=== PATIENT | male | born 2000 | race American Indian/Alaskan Native ===

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

== ENCOUNTER 2019-03-15 11:21 | Emergency (ER) | payer MEDICAID ==
[2019-03-15 13:30] LABS: Basophils # (Auto) 0.1 K/mm3 (0.0-0.1); Basophils % (Auto) 0.8 % (0.0-1.8); Eosinophils # (Auto) 0.1 K/mm3 (0.0-0.4); Eosinophils % (Auto) 0.7 % (0.0-4.3); Hemoglobin 13.9 gm/dl (11.8-15.2); Lymphocytes # (Auto) 1.9 K/mm3 (1.2-5.4); Lymphocytes % (Auto) 25.5 % (13.4-35.0); Mean Corpuscular HGB Conc 34 % (32-34); Mean Corpuscular Volume 82 fl (84-94); Monocytes # (Auto) 0.5 K/mm3 (0.0-0.8); Monocytes % (Auto) 6.9 % (0.0-7.3); Platelet Count 232 K/mm3 (140-440); Red Blood Count 5.01 M/mm3 (3.65-5.03); Red Cell Distribution Width 14.6 % (13.2-15.2)
[2019-03-15 14:14] LABS: Alanine Aminotransferase 68 units/L (7-56); Albumin 4.4 g/dL (3.9-5); BUN/Creatinine Ratio 14; Blood Urea Nitrogen 11 mg/dL (9-20); Calcium 9.7 mg/dL (8.4-10.2); Hemolysis Index 11
[2019-03-15 14:22] LABS: Bilirubin,Urine NEG (Negative); Blood,Urine NEG (Negative); Color,Urine Yellow (Yellow); Mucus,Urine FEW /HPF; Protein,Urine <15 mg/dL mg/dL (Negative); Urobilinogen,Urine < 2.0 mg/dL (<2.0); WBC,Urine < 1.0 /HPF (0.0-6.0)
[2019-03-15 14:44] LABS: Amphetamine Screen,Urine PRESUMPTIVE NEGATIVE; Benzodiazepines Screen,Urine PRESUMPTIVE NEGATIVE; Cannabinoid Screen,Urine PRESUMPTIVE NEGATIVE; Cocaine Screen,Urine PRESUMPTIVE NEGATIVE; Methadone Screen,Urine PRESUMPTIVE NEGATIVE; Opiate Screen,Urine PRESUMPTIVE NEGATIVE
--- NOTE | 2019-03-15 14:48 | Emergency Department Report ---
ED Psych HPI - General Chief Complaint: Psych Stated Complaint: SI IDEATION Time Seen by Provider: 03/15/19 11:54 Source: EMS Mode of arrival: Ambulatory - History of Present Illness MD Complaint: suicidal ideation -: Gradual Associated Psychiatric Symptoms: suicidal ideation Quality: getting worse Improves With: none Worsens With: none Context: significant life stressor Associated Symptoms: denies other symptoms Treatments Prior to Arrival: placed on mental he, other (Reports patient took 4 of his Seroquel medication pills in attempted overdose. ) - Related Data Home Medications Medication Instructions Recorded Confirmed Last Taken No Known Home Medications [No 10/07/18 03/16/19 Unknown Reported Home Medications] Allergies Allergy/AdvReac Type Severity Reaction Status Date / Time No Known Allergies Allergy Verified 02/26/16 14:16 ED Review of Systems ROS: Stated complaint: SI IDEATION Other details as noted in HPI Other: GENERAL: No weight change, fatigue, fever, chills, or night sweats SKIN: No changes in skin or hair, no itching, no rashes, no jaundice HEAD: No trauma EYES: No blurriness, tearing, itching, acute visual loss, conjunctival discoloration, or scleral icterus EARS: No hearing loss, tinnitus, vertigo, or earache NOSE: No rhinorrhea, stuffiness, sneezing, itching, or epistaxis MOUTH: No bleeding gums, hoarseness, sore throat, or swelling CARDIAC: No new murmur, chest pain, palpitations, dyspnea on exertion, orthopnea, PND, or edema RESPIRATORY: No shortness of breath, wheeze, cough, sputum production, hemoptysis GI: No nausea, vomiting, dysphagia, diarrhea, constipation, hematemesis, melena , hematochezia, or abdominal pain URINARY: No frequency, urgency, polyuria, dysuria, hematuria, or incontinence MUSCULOSKELETAL: No muscle weakness, joint stiffness, decrease in range of motion, redness, swelling NEUROLOGIC: No headache, syncope, loss of sensation, numbness, tingling, tremors, weakness, paralysis, seizures HEMATOLOGIC: No anemia, easy bruising, bleeding, petechiae, or purpura ENDOCRINE: No hot or cold intolerance, sweating, polyuria, polydipsia or, polyphagia no thyroid problems PSYCHIATRIC: SI, depression ED Past Medical Hx - Past Medical History Hx Psychiatric Treatment: Yes (schizoaffective and bipolar disorder) - Social History Smoking Status: Never Smoker Substance Use Type: None - Medications Home Medications: Home Medications Medication Instructions Recorded Confirmed Last Taken Type No Known Home Medications [No 10/07/18 03/16/19 Unknown History Reported Home Medications] ED Physical Exam - General Limitations: No Limitations - Other Other exam information: GENERAL: Patient in no acute distress HEAD: Normocephalic, atraumatic EYES: PERRLA, EOM intact, no scleral icterus, no conjunctival hemorrhage, visual vasquez and acuity wnl NOSE: No tenderness, discharge, sinus tenderness MOUTH: No erythema, bleeding, exudate HEART: Regular rate and rhythm, no murmur, S1-S2 are auscultated, no edema, pulses are symmetric LUNGS: No respiratory distress. Bilateral breath sounds, No tachypnea, No retractions, No wheezing, rales, rhonchi ABDOMEN: Normal bowel sounds, abdomen soft, no tenderness, no rebound, no guarding, no distention, no masses, no CVA tenderness MUSCULOSKELETAL: Normal joint range of motion, no redness, no swelling, no tenderness NEUROLOGIC: GCS 15, Alert and Oriented x3, Cranial nerves intact, normal sensation, normal strength, no cerebellar deficit, NIHSS 0 PSYCHIATRIC: SI. No homicidal, no hallucinations SKIN: Skin is warm and dry, no wounds, no rashes ED Course Vital Signs 03/15/19 03/15/19 03/15/19 12:08 13:00 19:00 Temperature 98 F 98.6 F 98.4 F Pulse Rate 99 H 102 H 98 H Respiratory 18 18 Rate Blood Pressure 156/97 Blood Pressure 152/85 131/89 [Left] O2 Sat by Pulse 100 100 99 Oximetry 03/16/19 03/16/19 03/16/19 02:00 07:00 13:00 Temperature 98.6 F 97.8 F 98.1 F Pulse Rate 86 87 83 Respiratory 16 18 20 Rate Blood Pressure Blood Pressure 140/78 115/65 150/92 [Left] O2 Sat by Pulse 98 99 100 Oximetry 03/16/19 03/16/19 19:20 20:26 Temperature 97.5 F L Pulse Rate 90 Respiratory 18 16 Rate Blood Pressure Blood Pressure 147/85 [Left] O2 Sat by Pulse 98 100 Oximetry ED Medical Decision Making - Lab Data Result diagrams: 03/15/19 13:13 03/15/19 19:27 Laboratory Results - last 24 hr 03/15/19 03/15/19 03/15/19 13:13 13:13 13:13 WBC 7.3 RBC 5.01 Hgb 13.9 Hct 41.0 MCV 82 L MCH 28 MCHC 34 RDW 14.6 Plt Count 232 Lymph % (Auto) 25.5 [place] % (Auto) 6.9 Eos % (Auto) 0.7 Baso % (Auto) 0.8 Lymph # 1.9 [place] # 0.5 Eos # 0.1 Baso # 0.1 Seg Neutrophils % 66.1 Seg Neutrophils # 4.8 Sodium 143 Potassium 4.1 Chloride 102.8 Carbon Dioxide 24 Anion Gap 20 BUN 11 Creatinine 0.8 Estimated GFR > 60 BUN/Creatinine Ratio 14 Glucose 137 H Calcium 9.7 Total Bilirubin 0.30 AST 76 H ALT 68 H Alkaline Phosphatase 149 H Total Creatine Kinase Total Protein 7.7 Albumin 4.4 Albumin/Globulin Ratio 1.3 Urine Color Urine Turbidity Urine pH Ur Specific [place] Urine Protein Urine Glucose (UA) Urine Ketones Urine Blood Urine Nitrite Urine Bilirubin Urine Urobilinogen Ur Leukocyte Esterase Urine WBC (Auto) Urine RBC (Auto) Urine Mucus Salicylates Urine Opiates Screen Urine Methadone Screen Acetaminophen Ur Barbiturates Screen Ur Phencyclidine Scrn Ur Amphetamines Screen U Benzodiazepines Scrn Urine Cocaine Screen U Marijuana (THC) Screen Drugs of Abuse Note Plasma/Serum Alcohol < 0.01 03/15/19 03/15/19 03/15/19 13:13 13:13 13:13 WBC RBC Hgb Hct MCV MCH MCHC RDW Plt Count Lymph % (Auto) [place] % (Auto) Eos % (Auto) Baso % (Auto) Lymph # [place] # Eos # Baso # Seg Neutrophils % Seg Neutrophils # Sodium Potassium Chloride Carbon Dioxide Anion Gap BUN Creatinine Estimated GFR BUN/Creatinine Ratio Glucose Calcium Total Bilirubin AST ALT Alkaline Phosphatase Total Creatine Kinase 1674 H Total Protein Albumin Albumin/Globulin Ratio Urine Color Urine Turbidity Urine pH Ur Specific [place] Urine Protein Urine Glucose (UA) Urine Ketones Urine Blood Urine Nitrite Urine Bilirubin Urine Urobilinogen Ur Leukocyte Esterase Urine WBC (Auto) Urine RBC (Auto) Urine Mucus Salicylates < 0.3 L Urine Opiates Screen Urine Methadone Screen Acetaminophen < 5.0 L Ur Barbiturates Screen Ur Phencyclidine Scrn Ur Amphetamines Screen U Benzodiazepines Scrn Urine Cocaine Screen U Marijuana (THC) Screen Drugs of Abuse Note Plasma/Serum Alcohol 03/15/19 03/15/19 14:02 14:02 WBC RBC Hgb Hct MCV MCH MCHC RDW Plt Count Lymph % (Auto) [place] % (Auto) Eos % (Auto) Baso % (Auto) Lymph # [place] # Eos # Baso # Seg Neutrophils % Seg Neutrophils # Sodium Potassium Chloride Carbon Dioxide Anion Gap BUN Creatinine Estimated GFR BUN/Creatinine Ratio Glucose Calcium Total Bilirubin AST ALT Alkaline Phosphatase Total Creatine Kinase Total Protein Albumin Albumin/Globulin Ratio Urine Color Yellow Urine Turbidity Clear Urine pH 5.0 Ur Specific [place] 1.018 Urine Protein <15 mg/dl Urine Glucose (UA) Neg Urine Ketones Neg Urine Blood Neg Urine Nitrite Neg Urine Bilirubin Neg Urine Urobilinogen < 2.0 Ur Leukocyte Esterase Neg Urine WBC (Auto) < 1.0 Urine RBC (Auto) 1.0 Urine Mucus Few Salicylates Urine Opiates Screen Presumptive negative Urine Methadone Screen Presumptive negative Acetaminophen Ur Barbiturates Screen Presumptive negative Ur Phencyclidine Scrn Presumptive negative Ur Amphetamines Screen Presumptive negative U Benzodiazepines Scrn Presumptive negative Urine Cocaine Screen Presumptive negative U Marijuana (THC) Screen Presumptive negative Drugs of Abuse Note Disclamer Plasma/Serum Alcohol - Medical Decision Making Patient medically clear for transfer. Patient signed out to Dr. Torres who will follow up repeat labs and dispo. Critical care attestation.: If time is entered above; I have spent that time in minutes in the direct care of this critically ill patient, excluding procedure time. ED Disposition Clinical Impression: Suicidal ideations Overdose Qualifiers: Encounter type: initial encounter Injury intent: intentional self-harm Qualified Code(s): T50.902A - Poisoning by unspecified drugs, medicaments and biological substances, intentional self-harm, initial encounter Rhabdomyolysis Qualifiers: Rhabdomyolysis type: non-traumatic Qualified Code(s): M62.82 - Rhabdomyolysis Disposition: DC/TX-70 ANOTHER TYPE HLTHCARE Is pt being admited?: No Condition: Stable
[2019-03-15] MEDS ORDERED: SODIUM CHLORIDE 0.9% 1000 ML 2,000 ML IV ONE (14:50)
[2019-03-15 19:55] LABS: Alanine Aminotransferase 80 units/L (7-56); Albumin 4.1 g/dL (3.9-5); BUN/Creatinine Ratio 14; Blood Urea Nitrogen 11 mg/dL (9-20); Calcium 9.3 mg/dL (8.4-10.2); Hemolysis Index 7
[2019-03-15] MEDS ORDERED: SODIUM CHLORIDE 0.9% 1000 ML 2,000 ML ONE (21:21)
--- NOTE | 2019-03-16 11:06 | Consultation ---
History of Present Illness - Reason for Consult Consult date: 03/16/19 Reason for consult: Initial Psychiatric Evaluation - Chief Complaint Chief complaint: " I'm here for a suicide attempt" - History of Present Psychiatric Illness Patient is a 18 year old male that presents to the emergency room after a suicide attempt by overdosing on Seroquel. He has a PPHx of Bipolar Disorder. Today the patient is calm and cooperative during the assessment. He report multiple stressors such as, being homeless and going to [facility]. Patient reports that he was arrested on 03-14-19 for failure to appear in court. Patient reports being easily irritable, mood fluctuations, depressed mood, poor impulse control, and a lack of motivation. He endorses suicidal/homicidal ideations ( " I want to kill my family") and paranoid delusions- " I believe my sister is going to kill me". He reports symptoms exacerbated 1 year ago - reason unknown. Patient has been noncompliant with medication for months. Patient denies A/VH's. Current Psychiatric Medications: No medications. Past Psychiatric History: Bipolar Disorder ( Age 13); More than 20 previous inpatient psychiatric hospitalizations; no outpatient psychiatrist; more than 15 previous suicide attempts ( overdose, jumped out of window/vehicle). Past Medication Trials: " I don't remember." History of Trauma/Abuse: Patient denies trauma. Patient denies sexual, physical, and mental abuse. History of Drug/Alcohol Abuse: Patient denies. UDS negative. Social History: 11th grade -highest level of education; homeless; SSI- $ 771.00/income; no children; single. Family History of Psychiatric Illness/Substance Abuse: Patient denies. Medications and Allergies Allergies Allergy/AdvReac Type Severity Reaction Status Date / Time No Known Allergies Allergy Verified 02/26/16 14:16 Home Medications Medication Instructions Recorded Confirmed Last Taken Type No Known Home Medications [No 10/07/18 03/16/19 Unknown History Reported Home Medications] Mental Status Exam - Vital signs Last Vital Signs Temp 97.8 F 03/16/19 07:00 Pulse 87 03/16/19 07:00 Resp 18 03/16/19 07:00 BP 115/65 03/16/19 07:00 Pulse Ox 99 03/16/19 07:00 - Exam Narrative exam: Mental Status Exam: Appearance: calm, cooperative Behavior: regular eye contact Speech: regular rate and tone Mood: "I feel good" Affect: flat, incongruent Thought Process: circumstantial Thought Content: impoverished Cognition: A/O x 3 Insight: variable Judgment: variable Results Result Diagrams: 03/15/19 13:13 03/15/19 19:27 Abnormal lab results 03/15/19 03/15/19 03/15/19 Range/Units 13:13 13:13 13:13 MCV 82 L (84-94) fl Glucose 137 H (75-100) mg/dL AST 76 H (5-40) units/L ALT 68 H (7-56) units/L Alkaline Phosphatase 149 H (35-129) units/L Total Creatine Kinase 1674 H (55-170) units/L Salicylates (2.8-20.0) mg/dL Acetaminophen (10.0-30.0) ug/mL 03/15/19 03/15/19 03/15/19 Range/Units 13:13 13:13 19:27 MCV (84-94) fl Glucose (75-100) mg/dL AST 93 H (5-40) units/L ALT 80 H (7-56) units/L Alkaline Phosphatase 140 H (35-129) units/L Total Creatine Kinase 1420 H (55-170) units/L Salicylates < 0.3 L (2.8-20.0) mg/dL Acetaminophen < 5.0 L (10.0-30.0) ug/mL All other labs normal. Assessment and Plan Assessment and plan: Impression: PPHx Bipolar Disorder. Today the patient is calm and cooperative. He endorses suicidal/homicidal ideations and paranoid delusions. Recommendation/Plan: 1. Continue 1013. 2. Start Geodon 40mg po BID mood/psychosis Discussed metabolic side effects. Patient verbalizes understanding. Patient refuses to take an anti-depressant. 3. Will order baseline HgA1c and lipid panel. Disposition: Will refer to inpatient psychiatric services. Will staff with Dr. Rodriguez.
[2019-03-16] MEDS ORDERED: ZIPRASIDONE MESYLATE 20 MG VIAL IM ONE (14:05)
[2019-03-16 14:18] LABS: Chol/HDL Ratio 3.19 %
[2019-03-16 20:27] VITALS: BP 147/85
[2019-03-16] MEDS ORDERED: ZIPRASIDONE 20 MG CAP PO SCH (22:00)
== END 2019-03-16 23:12 | disposition other institution (70) ==
LOC: EEVIPCON 11:21 → ED 11:21
DX: T43.592A Poisoning by other antipsychotics and neuroleptics, intentional self-harm, initial encounter (principal); M62.82 Rhabdomyolysis; F25.9 Schizoaffective disorder, unspecified; F31.9 Bipolar disorder, unspecified; Y92.89 Other specified places as the place of occurrence of the external cause
CPT/HCPCS: 36415; 80053; 80061; 80307; 81001; 82550; 83036; 85025; 96372; 99285; J3486; J7030; 80320; G0480

== ENCOUNTER 2019-03-24 09:53 | Emergency (ER) | payer MEDICAID ==
[2019-03-24 11:22] LABS: Basophils % (Auto) 0.6 % (0.0-1.8); Eosinophils # (Auto) 0.2 K/mm3 (0.0-0.4); Eosinophils % (Auto) 2.4 % (0.0-4.3); Hematocrit 40.6 % (35.5-45.6); Hemoglobin 13.5 gm/dl (11.8-15.2); Lymphocytes # (Auto) 1.8 K/mm3 (1.2-5.4); Mean Corpuscular HGB Conc 33 % (32-34); Mean Corpuscular Volume 82 fl (84-94); Monocytes # (Auto) 0.5 K/mm3 (0.0-0.8); Monocytes % (Auto) 8.1 % (0.0-7.3); Platelet Count 236 K/mm3 (140-440); Red Blood Count 4.95 M/mm3 (3.65-5.03); Red Cell Distribution Width 14.5 % (13.2-15.2)
--- NOTE | 2019-03-24 11:27 | Emergency Department Report ---
ED Psych HPI - General Chief Complaint: Psych Stated Complaint: SI Time Seen by Provider: 03/24/19 10:36 Source: patient, EMS Mode of arrival: Ambulatory - History of Present Illness Initial Comments: This is a 18-year-old male with a history of bipolar disorder not on medication presents to ED stating that he was feeling suicidal and took for or cold tablets trying to end his life. Patient states he still feeling suicidal at the moment. He denies any chest pain, shortness of breath, fever, nausea vomiting or any other symptoms. Patient is sitting comfortably in the ED chair in room 12 B Complaint: suicidal ideation - Related Data Home Medications Medication Instructions Recorded Confirmed Last Taken No Known Home Medications [No 10/07/18 03/24/19 Unknown Reported Home Medications] Allergies Allergy/AdvReac Type Severity Reaction Status Date / Time aripiprazole [From Abilify] Allergy Unknown Verified 03/24/19 10:31 methylphenidate Allergy Unknown Verified 03/24/19 10:31 [From Concerta] ED Review of Systems ROS: Stated complaint: SI Other details as noted in HPI Comment: All other systems reviewed and negative ED Past Medical Hx - Past Medical History Previous Medical History?: Yes Hx Seizures: Yes Hx Psychiatric Treatment: Yes (schizoaffective and bipolar disorder) - Surgical History Past Surgical History?: No - Social History Smoking Status: Current Every Day Smoker Substance Use Type: None - Medications Home Medications: Home Medications Medication Instructions Recorded Confirmed Last Taken Type No Known Home Medications [No 10/07/18 03/24/19 Unknown History Reported Home Medications] ED Physical Exam - General Limitations: No Limitations General appearance: alert, in no apparent distress - Head Head exam: Present: atraumatic, normocephalic - Eye Eye exam: Present: normal appearance - ENT ENT exam: Present: mucous membranes moist - Neck Neck exam: Present: normal inspection - Respiratory Respiratory exam: Present: normal lung sounds bilaterally. Absent: respiratory distress - Cardiovascular Cardiovascular Exam: Present: regular rate, normal rhythm. Absent: systolic murmur, diastolic murmur, rubs, gallop - GI/Abdominal GI/Abdominal exam: Present: soft, normal bowel sounds - Rectal Rectal exam: Present: deferred - Extremities Exam Extremities exam: Present: normal inspection, full ROM - Back Exam Back exam: Present: normal inspection, full ROM - Neurological Exam Neurological exam: Present: alert, oriented X3 - Psychiatric Psychiatric exam: Present: normal affect, normal mood - Skin Skin exam: Present: warm, dry, intact, normal color. Absent: rash ED Course Vital Signs 03/24/19 03/24/19 03/24/19 13:25 19:10 20:23 Temperature 97.9 F 98.2 F Pulse Rate 104 H 96 H Respiratory 18 18 Rate Blood Pressure 169/94 [Left] O2 Sat by Pulse 99 100 98 Oximetry 03/25/19 03/25/19 03/25/19 02:00 08:35 18:08 Temperature 98.0 F 98.0 F 98.1 F Pulse Rate 91 H 98 H 97 H Respiratory 20 Rate Blood Pressure 147/78 155/86 142/79 [Left] O2 Sat by Pulse 100 95 97 Oximetry ED Medical Decision Making - Lab Data Result diagrams: 03/24/19 10:58 03/24/19 10:58 Laboratory Last Values WBC 6.5 K/mm3 (4.5-11.0) 03/24/19 10:58 RBC 4.95 M/mm3 (3.65-5.03) 03/24/19 10:58 Hgb 13.5 gm/dl (11.8-15.2) 03/24/19 10:58 Hct 40.6 % (35.5-45.6) 03/24/19 10:58 MCV 82 fl (84-94) L 03/24/19 10:58 MCH 27 pg (28-32) L 03/24/19 10:58 MCHC 33 % (32-34) 03/24/19 10:58 RDW 14.5 % (13.2-15.2) 03/24/19 10:58 Plt Count 236 K/mm3 (140-440) 03/24/19 10:58 Lymph % (Auto) 27.0 % (13.4-35.0) 03/24/19 10:58 [place] % (Auto) 8.1 % (0.0-7.3) H 03/24/19 10:58 Eos % (Auto) 2.4 % (0.0-4.3) 03/24/19 10:58 Baso % (Auto) 0.6 % (0.0-1.8) 03/24/19 10:58 Lymph # 1.8 K/mm3 (1.2-5.4) 03/24/19 10:58 [place] # 0.5 K/mm3 (0.0-0.8) 03/24/19 10:58 Eos # 0.2 K/mm3 (0.0-0.4) 03/24/19 10:58 Baso # 0.0 K/mm3 (0.0-0.1) 03/24/19 10:58 Seg Neutrophils % 61.9 % (40.0-70.0) 03/24/19 10:58 Seg Neutrophils # 4.0 K/mm3 (1.8-7.7) 03/24/19 10:58 Sodium 138 mmol/L (137-145) 03/24/19 10:58 Potassium 4.2 mmol/L (3.6-5.0) 03/24/19 10:58 Chloride 99.7 mmol/L (98-107) 03/24/19 10:58 Carbon Dioxide 26 mmol/L (22-30) 03/24/19 10:58 Anion Gap 17 mmol/L 03/24/19 10:58 BUN 10 mg/dL (9-20) 03/24/19 10:58 Creatinine 0.7 mg/dL (0.8-1.5) L 03/24/19 10:58 Estimated GFR > 60 ml/min 03/24/19 10:58 BUN/Creatinine Ratio 14 % 03/24/19 10:58 Glucose 91 mg/dL (75-100) 03/24/19 10:58 Calcium 9.2 mg/dL (8.4-10.2) 03/24/19 10:58 Salicylates < 0.3 mg/dL (2.8-20.0) L 03/24/19 10:58 Acetaminophen < 5.0 ug/mL (10.0-30.0) L 03/24/19 10:58 Plasma/Serum Alcohol < 0.01 % (0-0.07) 03/24/19 10:58 - Medical Decision Making 18-year-old male presents with suicidal ideation. All labs are within normal limits. Mental health consult place. Lives at home will evaluate patient. Vital signs normal patient is in no acute distress. Patient awaiting mental health elevation and then placement And currently still exhibiting suicidal ideation or plan to overdose on medication Critical care attestation.: If time is entered above; I have spent that time in minutes in the direct care of this critically ill patient, excluding procedure time. ED Disposition Clinical Impression: Suicidal ideations Disposition: DC/TX-65 PSY HOSP/PSY UNIT Is pt being admited?: No Does the pt Need Aspirin: No Condition: Stable Referrals: PRIMARY CARE, [Primary Care Provider] - 3-5 Days
[2019-03-24 11:33] LABS: BUN/Creatinine Ratio 14; Blood Urea Nitrogen 10 mg/dL (9-20); Calcium 9.2 mg/dL (8.4-10.2); Hemolysis Index 19
[2019-03-24 20:29] LABS: Bilirubin,Urine NEG (Negative); Blood,Urine NEG (Negative); Color,Urine Yellow (Yellow); Mucus,Urine FEW /HPF; Protein,Urine <15 mg/dL mg/dL (Negative); Urobilinogen,Urine < 2.0 mg/dL (<2.0)
[2019-03-24 20:35] LABS: Amphetamine Screen,Urine PRESUMPTIVE NEGATIVE; Benzodiazepines Screen,Urine PRESUMPTIVE NEGATIVE; Cannabinoid Screen,Urine PRESUMPTIVE NEGATIVE; Cocaine Screen,Urine PRESUMPTIVE NEGATIVE; Methadone Screen,Urine PRESUMPTIVE NEGATIVE; Opiate Screen,Urine PRESUMPTIVE NEGATIVE
--- NOTE | 2019-03-25 09:54 | Consultation ---
History of Present Illness - Reason for Consult Consult date: 03/25/19 Reason for consult: Mental Health Evaluation Requesting physician: BETY SANCHEZ - Chief Complaint Chief complaint: "I do want to kill myself' - History of Present Psychiatric Illness 18 y.o. AA male who presented to the ER SI's. Today the patient was somewhat preoccupied during the assessment. He had to be redirected several times to keep him on topic. He appeared to be responding to some type of stimuli throughout the interview. He stated that he is hearing voices telling to him to kill himself. He was asked about his family, he stated, "I don't have family." He denies a mental health hx when asked. Overall, the patient's insight was poor. No gestures of HI's. Medications and Allergies Allergies Allergy/AdvReac Type Severity Reaction Status Date / Time aripiprazole [From Abilify] Allergy Unknown Verified 03/24/19 10:31 methylphenidate Allergy Unknown Verified 03/24/19 10:31 [From Concerta] Home Medications Medication Instructions Recorded Confirmed Last Taken Type No Known Home Medications [No 10/07/18 03/24/19 Unknown History Reported Home Medications] Past psychiatric history - Past Medical History Past Medical History: other (Unable to obtain ) Past Surgical History: Other (Unable to obtain ) - past Psychiatric treatment and history psychiatric treatment history: Unable to obtain a psy hx and a fam psy hx. - Social History Social history: other (Unable to obtain) Mental Status Exam - Vital signs Last Vital Signs Temp 98.0 F 03/25/19 08:35 Pulse 98 H 03/25/19 08:35 Resp 20 03/25/19 02:00 BP 155/86 03/25/19 08:35 Pulse Ox 95 03/25/19 08:35 - Exam Narrative exam: MSE: Appearance: disheveled Behavior: poor eye contact Speech: regular rate and tone Mood: somewhat preoccupied Affect: congruent to mood Thought Process: tangential Thought Content: denies HI's and VH's Motor Activity: lying in bed Cognition: A/O x 3 Insight: poor Judgment: poor Results Result Diagrams: 03/24/19 10:58 03/24/19 10:58 Abnormal lab results 11/17/19 11/17/19 11/17/19 Range/Units 10:58 10:58 10:58 MCV (84-94) fl MCH (28-32) pg [place] % (Auto) (0.0-7.3) % Creatinine 0.7 L (0.8-1.5) mg/dL Salicylates < 0.3 L (2.8-20.0) mg/dL Acetaminophen < 5.0 L (10.0-30.0) ug/mL 03/24/19 Range/Units 10:58 MCV 82 L (84-94) fl MCH 27 L (28-32) pg [place] % (Auto) 8.1 H (0.0-7.3) % Creatinine (0.8-1.5) mg/dL Salicylates (2.8-20.0) mg/dL Acetaminophen (10.0-30.0) ug/mL All other labs normal. Assessment and Plan Assessment and plan: Impression: Unspecified Mood DO with psy features. Today the patient was somewhat preoccupied during the assessment. DDx: Schizophrenia, Bipolar DO with psychosis Recommendation/Plan: Continue 1013 and start Zyprexa 5 mg PO HS for psychosis/mood. Attempted to discuss possible metabolic side effects of Zyprexa with the patient. confirmed. Baseline A1c/Lipid Panel ordered for the AM. Dispo: The patient was referred to inpatient psy services. Staffed with Dr Wyatt Rodriguez.
[2019-03-25 18:10] VITALS: BP 142/79
== END 2019-03-25 19:49 ==
LOC: EEVIPCON 09:53 → ED 09:53
DX: F25.9 Schizoaffective disorder, unspecified (principal); F31.9 Bipolar disorder, unspecified; F17.200 Nicotine dependence, unspecified, uncomplicated; Z88.5 Allergy status to narcotic agent
CPT/HCPCS: 36415; 80048; 80307; 80320; 81001; 85025; 99285; G0480

== ENCOUNTER 2020-08-23 04:14 | Emergency (ER) | payer MEDICAID ==
[2020-08-23 04:55] LABS: Basophils # (Auto) 0.1 K/mm3 (0.0-0.1); Basophils % (Auto) 0.6 % (0.0-1.8); Eosinophils # (Auto) 0.2 K/mm3 (0.0-0.4); Eosinophils % (Auto) 1.8 % (0.0-4.3); Hematocrit 44.5 % (35.5-45.6); Hemoglobin 14.8 gm/dl (11.8-15.2); Lymphocytes % (Auto) 30.8 % (13.4-35.0); Mean Corpuscular HGB Conc 33 % (32-34); Mean Corpuscular Volume 84 fl (84-94); Monocytes # (Auto) 0.8 K/mm3 (0.0-0.8); Monocytes % (Auto) 8.5 % (0.0-7.3); Platelet Count 278 K/mm3 (140-440); Red Blood Count 5.32 M/mm3 (3.65-5.03); Red Cell Distribution Width 15.1 % (13.2-15.2)
[2020-08-23 05:13] LABS: BUN/Creatinine Ratio 10; Blood Urea Nitrogen 10 mg/dL (9-20); Calcium 9.3 mg/dL (8.4-10.2); Hemolysis Index 6
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
[2020-08-23 08:26] LABS: Amphetamine Screen,Urine Negative; Benzodiazepines Screen,Urine Negative; Cannabinoid Screen,Urine Negative; Cocaine Screen,Urine Negative; Methadone Screen,Urine Negative; Opiate Screen,Urine Negative
[2020-08-23 09:07] LABS: Bilirubin,Urine NEG (Negative); Blood,Urine NEG (Negative); Color,Urine Yellow (Yellow); Protein,Urine <15 mg/dL mg/dL (Negative); Urobilinogen,Urine < 2.0 mg/dL (<2.0); WBC,Urine < 1.0 /HPF (0.0-6.0)
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
--- NOTE | 2020-08-24 09:15 | Progress Note ---
Subjective - Reason for Consult Consult date: 08/24/20 Reason for consult: (1) Schizoaffective disorder Requesting physician: CELESTE GAXIOLA - Chief Complaint Chief complaint: Psych Progress Patient seen today, patients states he wants to go but his plan is to go back out therein the streets and on the street because he will never go back to his moms house. REVIEW OF SYSTEMS Constitutional: Negative for weight loss ENT: Negative for stridor Respiratory: Negative for cough or hemoptysis All other systems reviewed and are negative MENTAL STATUS EXAMINATION General Appearance and Behavior: Age appropriate, good hygiene, wearing appropriate clothes, lying in bed, good eye contact, cooperative polite with questioning. Cooperation: Participating/engaged Psychomotor Behavior: unremarkable and within normal limits Mood: ok Affect and affective range: congruent with mood Thought Process: Fluent but illogical Thought Content: illogical, hears voices mostly moms Speech: Normal volume, Regular rate and rhythm. Suicidal Ideation: SI Homicidal Ideation: denies Impulse Control: Unimpaired Insight and Judgment: Normal insight and judgment Memory: Normal Attention: Normal Orientation: Alert, oriented RECOMMENDATIONS Assessment and Plan - Psychiatric problem (1) Schizoaffective disorder Current Visit: Yes Status: Acute MEDICATIONS: Risks, benefits and alternatives of medications discussed with the patient, questions answered and consent obtained from patient. PSYCHOTHERAPY: Supportive psychotherapy provided MEDICAL: Per primary team DELIRIUM PRECAUTIONS: Please re-orient patient frequently, keep lights on during the day, and minimize benzodiazepines and opiates as these medications could worsen patient's confusion. 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 Case discussed with Dr. Lloyd LEGAL STATUS: 1013 FOLLOW-UP: Will follow Thank you for the consult. Please contact with any questions and/or concerns. Mental Status Exam - Vital signs Last Vital Signs Temp 98 F 08/23/20 20:34 Pulse 80 08/23/20 20:34 Resp 18 08/23/20 20:34 BP 141/83 08/23/20 20:34 Pulse Ox 100 08/23/20 20:34 Assessment and Plan - Patient Problems (1) Schizoaffective disorder Current Visit: Yes Status: Acute
[2020-08-24] MEDS ORDERED: LORazepam 1 MG TAB PO ONE (11:44)
[2020-08-24 16:01] VITALS: BP 144/84
[2020-08-24] MEDS ORDERED: BENZTROPINE 2 MG TAB PO SCH (22:00)
== END 2020-08-24 18:00 ==
LOC: ED 04:14
DX: R45.851 Suicidal ideations (principal); Z20.822 Contact with and (suspected) exposure to COVID-19; R56.9 Unspecified convulsions; F17.200 Nicotine dependence, unspecified, uncomplicated; Z79.899 Other long term (current) drug therapy; Z88.8 Allergy status to other drugs, medicaments and biological substances
CPT/HCPCS: 36415; 80048; 80307; 81001; 85025; 99285; U0003; 80320; G0480

== ENCOUNTER 2020-09-14 23:15 | Emergency (ER) | payer MEDICAID ==
[2020-09-15 02:05] VITALS: BP 164/104
== END 2020-09-15 07:00 ==
LOC: ED 23:15
DX: R45.851 Suicidal ideations (principal); Z53.21 Procedure and treatment not carried out due to patient leaving prior to being seen by health care provider
CPT/HCPCS: 36415; 80048; 80307; 80320; 81001; 85025; G0480

== ENCOUNTER 2020-10-09 22:10 | Emergency (ER) | payer MEDICAID ==
[2020-10-09 22:48] LABS: Basophils # (Auto) 0.1 K/mm3 (0.0-0.1); Basophils % (Auto) 0.6 % (0.0-1.8); Eosinophils # (Auto) 0.1 K/mm3 (0.0-0.4); Eosinophils % (Auto) 0.7 % (0.0-4.3); Hematocrit 41.4 % (35.5-45.6); Hemoglobin 13.9 gm/dl (11.8-15.2); Lymphocytes # (Auto) 2.9 K/mm3 (1.2-5.4); Mean Corpuscular HGB Conc 34 % (32-34); Mean Corpuscular Volume 82 fl (84-94); Monocytes % (Auto) 10.5 % (0.0-7.3); Platelet Count 245 K/mm3 (140-440); Red Blood Count 5.08 M/mm3 (3.65-5.03); Red Cell Distribution Width 14.5 % (13.2-15.2)
[2020-10-09 23:18] LABS: BUN/Creatinine Ratio 10; Blood Urea Nitrogen 10 mg/dL (9-20); Calcium 9.3 mg/dL (8.4-10.2); Hemolysis Index 6
--- NOTE | 2020-10-09 23:31 | Emergency Department Report ---
ED Psych HPI - General Chief Complaint: Psych Stated Complaint: SUICIDAL Time Seen by Provider: 10/09/20 23:26 Source: patient Mode of arrival: Ambulatory - History of Present Illness Initial Comments: 20-year-old male, history of bipolar disorder and schizophrenia, presents to ED with suicidal ideations. Patient states he wants to run into traffic because he has nothing to live for. Patient states he has been off of his psychiatric medications. He denies any HI or hallucinations. MD Complaint: suicidal ideation -: This evening Associated Psychiatric Symptoms: suicidal ideation Improves With: none Worsens With: none Context: not taking psychiatric Associated Symptoms: denies other symptoms Treatments Prior to Arrival: none If Self Harm: has plan (Run into traffic) - Related Data Home Medications Medication Instructions Recorded Confirmed Last Taken Divalproex Dr [Josie DR] 750 mg PO BID 10/10/20 10/10/20 Unknown QUEtiapine [SEROquel] 100 mg PO BID 10/10/20 10/10/20 Unknown Previous Rx's Medication Instructions Recorded Last Taken Type Benztropine [Cogentin] 2 mg PO QHS #30 tab 11/29/19 Unknown Rx OLANzapine [ZyPREXA] 5 mg PO QHS #30 tablet 11/29/19 Unknown Rx FLUoxetine [PROzac] 10 mg PO QDAY #30 tablet 10/11/20 Unknown Rx OLANZapine [Zyprexa] 5 mg PO DAILY #30 tablet 10/11/20 Unknown Rx traZODone [Desyrel] 50 mg PO QHS #30 tab 10/11/20 Unknown Rx Allergies Allergy/AdvReac Type Severity Reaction Status Date / Time aripiprazole [From Abilify] Allergy Unknown Verified 03/24/19 10:31 methylphenidate Allergy Unknown Verified 03/24/19 10:31 [From Concerta] ED Review of Systems ROS: Stated complaint: SUICIDAL Other details as noted in HPI Comment: All other systems reviewed and negative Psychiatric: suicidal thoughts. denies: auditory hallucinations, visual hallucinations, homicidal thoughts ED Past Medical Hx - Past Medical History Hx Hypertension: Yes Hx Seizures: Yes Hx Psychiatric Treatment: Yes (schizoaffective and bipolar disorder) - Surgical History Additional Surgical History: breast reduction - Social History Smoking Status: Current Every Day Smoker Substance Use Type: None - Medications Home Medications: Home Medications Medication Instructions Recorded Confirmed Last Taken Type Benztropine [Cogentin] 2 mg PO QHS #30 tab 11/29/19 10/10/20 Unknown Rx OLANzapine [ZyPREXA] 5 mg PO QHS #30 tablet 11/29/19 10/10/[address] [Josie [facility]] 750 mg PO BID 10/10/20 10/10/20 Unknown History QUEtiapine [SEROquel] 100 mg PO BID 10/10/20 10/10/20 Unknown History FLUoxetine [PROzac] 10 mg PO QDAY #30 tablet 10/11/20 Unknown Rx OLANZapine [Zyprexa] 5 mg PO DAILY #30 tablet 10/11/20 Unknown Rx traZODone [Desyrel] 50 mg PO QHS #30 tab 10/11/20 Unknown Rx ED Physical Exam - General Limitations: No Limitations General appearance: alert, in no apparent distress, other (Appears unkempt) - Head Head exam: Present: atraumatic, normocephalic - Eye Eye exam: Present: normal appearance, EOMI - ENT ENT exam: Present: mucous membranes moist - Neck Neck exam: Present: normal inspection - Respiratory Respiratory exam: Present: normal lung sounds bilaterally. Absent: respiratory distress - Cardiovascular Cardiovascular Exam: Present: normal rhythm, tachycardia - GI/Abdominal GI/Abdominal exam: Absent: distended - Extremities Exam Extremities exam: Present: normal inspection - Neurological Exam Neurological exam: Present: alert, oriented X3 - Psychiatric Psychiatric exam: Present: normal affect, normal mood - Skin Skin exam: Present: warm, dry, intact, normal color ED Course Vital Signs 10/09/20 10/09/20 10/10/20 22:27 23:28 09:25 Temperature 99.5 F 97.8 F Pulse Rate 115 H 70 Respiratory 19 18 20 Rate Blood Pressure 153/68 Blood Pressure 145/87 [Right] O2 Sat by Pulse 98 98 98 Oximetry 10/10/20 10/10/20 10/11/20 20:10 22:11 02:53 Temperature 98.7 F 98.1 F Pulse Rate 81 86 Respiratory 18 18 18 Rate Blood Pressure Blood Pressure 124/85 153/90 [Right] O2 Sat by Pulse 97 98 Oximetry 10/11/20 08:39 Temperature 98.3 F Pulse Rate 94 H Respiratory 20 Rate Blood Pressure Blood Pressure 147/93 [Right] O2 Sat by Pulse 98 Oximetry ED Medical Decision Making - Lab Data Result diagrams: 10/09/20 22:33 10/09/20 22:33 - Medical Decision Making Patient is medically clear for mental health evaluation. Critical care attestation.: If time is entered above; I have spent that time in minutes in the direct care of this critically ill patient, excluding procedure time. ED Disposition Clinical Impression: Bipolar disorder, Homelessness Disposition: - TO HOME OR SELFCARE Is pt being admited?: No Condition: Stable Instructions: Anette, Managing Bipolar Disorder, Mindfulness-Based Stress Reduction Prescriptions: traZODone [Desyrel] 50 mg PO QHS #30 tab FLUoxetine [PROzac] 10 mg PO QDAY #30 tablet OLANZapine [Zyprexa] 5 mg PO DAILY #30 tablet Referrals: PRIMARY CARE, [Primary Care Provider] - 3-5 Days
[2020-10-09 23:52] LABS: Bacteria,Urine 1+ /HPF (Negative); Bilirubin,Urine NEG (Negative); Blood,Urine NEG (Negative); Color,Urine Yellow (Yellow); Mucus,Urine FEW /HPF; Protein,Urine <15 mg/dL mg/dL (Negative); WBC,Urine < 1.0 /HPF (0.0-6.0)
[2020-10-09 23:59] LABS: Amphetamine Screen,Urine PRESUMPTIVE NEGATIVE; Benzodiazepines Screen,Urine PRESUMPTIVE NEGATIVE; Cannabinoid Screen,Urine PRESUMPTIVE POSITIVE; Cocaine Screen,Urine PRESUMPTIVE NEGATIVE; Methadone Screen,Urine PRESUMPTIVE NEGATIVE; Opiate Screen,Urine PRESUMPTIVE NEGATIVE
--- NOTE | 2020-10-10 10:19 | Consultation ---
History of Present Illness - Reason for Consult Consult date: 10/10/20 Reason for consult: psychosis - History of Present Psychiatric Illness Per ED Note: 20-year-old male, history of bipolar disorder and schizophrenia, presents to ED with suicidal ideation. Patient states he wants to run into traffic because he has nothing to live for. Patient states he has been off of his psychiatric medications. He denies any HI or hallucinations. Toy Thao is a 20y/o male patient I seen today, during my evaluation of him he is uncooperative. He talks to me in the hallway in passing. When asking him to speak to him in a private location, he states "I was going in the middle of the street to get hit by a car. I don't want to live no more." The patient says "I'm tired of talking." He then walks off. PAST PSYCHIATRIC HISTORY: Unable to obtain PAST MEDICAL HISTORY: None reported Family Psychiatric History: None reported or documented SOCIAL HISTORY Unable to obtain REVIEW OF SYSTEMS Unable to obtain MENTAL STATUS EXAMINATION General Appearance and Behavior: Age appropriate, good hygiene, Poor eye contact, uncooperative Cooperation: withdrawn Psychomotor Behavior: Psychomotor normal Mood: Affect and affective range: restricted, tearful Thought Process: Speech: Normal tone and pace Thought Content Suicidal Ideation: Yes Homicidal Ideation: Denies Hallucinations: Denies Delusions: None elicited Impulse Control: Impaired Insight and Judgment: Limited insight and judgment Memory: Normal Attention: Divided attention impaired Orientation: A/o x 3 Assessment and Plan (1)Bipolar Disorder Treatment Plan 1013 Olanzapine 4mg po daily Prozac 10mg po daily Trazodone 50mg po qhs Sitter: Defer to primary Medical: Per primary Disposition: Recommend acute psychiatric treatment Sitter to provide resources for outpatient psych Will follow. Thank you for this consult Case staffed with Dr. Yeager. Medications and Allergies Allergies Allergy/AdvReac Type Severity Reaction Status Date / Time aripiprazole [From Abilify] Allergy Unknown Verified 03/24/19 10:31 methylphenidate Allergy Unknown Verified 03/24/19 10:31 [From Concerta] Home Medications Medication Instructions Recorded Confirmed Last Taken Type Benztropine [Cogentin] 2 mg PO QHS #30 tab 11/29/19 08/24/20 Unknown Rx OLANzapine [ZyPREXA] 5 mg PO QHS #30 tablet 11/29/19 08/24/20 Unknown Rx Mental Status Exam - Vital signs Last Vital Signs Temp 97.8 F 10/10/20 09:25 Pulse 70 10/10/20 09:25 Resp 20 10/10/20 09:25 BP 145/87 10/10/20 09:25 Pulse Ox 98 10/10/20 09:25 Results Result Diagrams: 10/09/20 22:33 10/09/20 22:33 Abnormal lab results 10/09/20 10/09/20 10/09/20 Range/Units 22:33 22:33 22:33 RBC (3.65-5.03) M/mm3 MCV (84-94) fl MCH (28-32) pg [place] % (Auto) (0.0-7.3) % [place] # (Auto) (0.0-0.8) K/mm3 Glucose 107 H (75-100) mg/dL Salicylates < 0.3 L (2.8-20.0) mg/dL Acetaminophen 5.0 L (10.0-30.0) ug/mL 10/09/20 Range/Units 22:33 RBC 5.08 H (3.65-5.03) M/mm3 MCV 82 L (84-94) fl MCH 27 L (28-32) pg [place] % (Auto) 10.5 H (0.0-7.3) % [place] # (Auto) 1.0 H (0.0-0.8) K/mm3 Glucose (75-100) mg/dL Salicylates (2.8-20.0) mg/dL Acetaminophen (10.0-30.0) ug/mL All other labs normal.
[2020-10-10] MEDS ORDERED: FLUoxetine 10 MG TAB PO SCH (11:00)
[2020-10-10] MEDS ORDERED: traZODone 50 MG TAB PO SCH (22:00)
[2020-10-11 08:39] VITALS: BP 147/93
--- NOTE | 2020-10-11 10:31 | Event Note ---
Date: 10/11/20 20-year-old male with history of bipolar disorder and schizophrenia who presented on October 09 with suicidal ideation and was subsequently placed on 1012. S: No acute events overnight. The patient states that he feels very good today. He says he feels much better than he did yesterday. He says his mood is improved significantly. He denies any physical symptoms or complaints whatsoever. O: Laboratory Results - last 24 hr 10/10/20 Unknown Coronavirus (PCR) Negative Vital Signs - 24 hr 10/10/20 10/10/20 10/11/20 20:10 22:11 02:53 Temperature 98.7 F 98.1 F Pulse Rate 81 86 Respiratory 18 18 18 Rate Blood Pressure 124/85 153/90 [Right] O2 Sat by Pulse 97 98 Oximetry 10/11/20 08:39 Temperature 98.3 F Pulse Rate 94 H Respiratory 20 Rate Blood Pressure 147/93 [Right] O2 Sat by Pulse 98 Oximetry Labs and vital signs reviewed GENERAL: Well developed and well nourished. No acute distress HEENT: Normocephalic. No obvious signs of trauma. Moist mucous membranes. EYES: Extraocular movements are intact. NECK: Supple. Trachea is midline. LUNGS: Nonlabored breathing. Equal chest rise bilaterally. Clear to auscultation bilaterally. HEART/CARDIOVASCULAR: Regular rate and rhythm. No murmurs or rubs. ABDOMEN: Abdomen is soft and nondistended. There is no significant tenderness, guarding or rebound. SKIN: Skin is warm and dry NEURO: Patient is awake, alert, and oriented. dive supervisor II-XII grossly intact. No focal deficits. Normal speech. MUSCULOSKELETAL: No obvious deformities. No significant tenderness. A/P: 20-year-old male with a history of bipolar disorder and schizophrenia who presented on October 09 with suicidal ideation and was placed on 1012. Vital signs reviewed and are stable. Patient is on prescribed psychiatric medications. Currently awaiting inpatient psychiatric facility placement.
--- NOTE | 2020-10-11 10:56 | Progress Note ---
Subjective - Reason for Consult Consult date: 10/11/20 Reason for consult: suicidal - Chief Complaint Chief complaint: The patient was seen today, he is more calm and cooperative today. He states "I feel good." He denies SI/HI. The patient says "that was stupid of me and I won't ever do that again." He says "I love life and got too much to live for." He also denies hallucinations of any kind. REVIEW OF SYSTEMS Constitutional: Negative for weight loss ENT: Negative for stridor Respiratory: Negative for cough or hemoptysis All other systems reviewed and are negative MENTAL STATUS EXAMINATION General Appearance and Behavior: Age appropriate, good hygiene, good eye contact, cooperative Cooperation: cooperative Psychomotor Behavior: Psychomotor normal Mood: Good Affect and affective range: Normal tone and pace Thought Process: goal oriented Speech: Normal tone and pace Thought Content Suicidal Ideation: Denies Homicidal Ideation: Denies Hallucinations: Denies Delusions: None elicited Impulse Control: Impaired Insight and Judgment: Limited insight and judgment Memory: Normal Attention: Divided attention impaired Orientation: A/o x 3 Assessment and Plan (1)Bipolar Disorder Treatment Plan d/c 1013 Olanzapine 5mg po daily Prozac 10mg po daily Trazodone 50mg po qhs Sitter: Defer to primary Medical: Per primary Disposition: Do not recommend acute psychiatric treatment The junior account manager to give the patient outpatient resources, and CBT The junior account manager to further discuss safety plan Sitter to provide resources for outpatient psych Will sign off. Thank you for this consult Case staffed with Dr. Yeager. Mental Status Exam - Vital signs Last Vital Signs Temp 98.3 F 10/11/20 08:39 Pulse 94 H 10/11/20 08:39 Resp 20 10/11/20 08:39 BP 147/93 10/11/20 08:39 Pulse Ox 98 10/11/20 08:39
== END 2020-10-11 12:41 | disposition home or self-care (01) ==
LOC: ED 22:10
DX: F31.9 Bipolar disorder, unspecified (principal); Z59.0 Homelessness; Z20.822 Contact with and (suspected) exposure to COVID-19; I10 Essential (primary) hypertension; R56.9 Unspecified convulsions; F17.200 Nicotine dependence, unspecified, uncomplicated; Z98.890 Other specified postprocedural states; Z79.899 Other long term (current) drug therapy; Z88.8 Allergy status to other drugs, medicaments and biological substances
CPT/HCPCS: 36415; 80048; 80307; 81001; 85025; 99284; U0003; 80320; G0480

== ENCOUNTER 2020-10-12 22:36 | Emergency (ER) | payer MEDICAID ==
[2020-10-13 02:10] LABS: Basophils # (Auto) 0.1 K/mm3 (0.0-0.1); Basophils % (Auto) 0.6 % (0.0-1.8); Eosinophils # (Auto) 0.1 K/mm3 (0.0-0.4); Eosinophils % (Auto) 1.2 % (0.0-4.3); Hematocrit 41.1 % (35.5-45.6); Hemoglobin 13.8 gm/dl (11.8-15.2); Lymphocytes # (Auto) 3.8 K/mm3 (1.2-5.4); Lymphocytes % (Auto) 38.3 % (13.4-35.0); Mean Corpuscular HGB Conc 34 % (32-34); Mean Corpuscular Volume 82 fl (84-94); Monocytes # (Auto) 0.9 K/mm3 (0.0-0.8); Monocytes % (Auto) 9.2 % (0.0-7.3); Platelet Count 256 K/mm3 (140-440); Red Cell Distribution Width 14.6 % (13.2-15.2)
[2020-10-13 02:33] LABS: BUN/Creatinine Ratio 10; Blood Urea Nitrogen 9 mg/dL (9-20); Calcium 9.4 mg/dL (8.4-10.2); Hemolysis Index 4
[2020-10-13 04:03] LABS: Bilirubin,Urine NEG (Negative); Blood,Urine NEG (Negative); Color,Urine Yellow (Yellow); Mucus,Urine FEW /HPF; Protein,Urine <15 mg/dL mg/dL (Negative); Sperm,Urine FEW /HPF (NP)
[2020-10-13 04:04] LABS: WBC,Urine < 1.0 /HPF (0.0-6.0)
[2020-10-13 04:09] LABS: Amphetamine Screen,Urine Negative; Benzodiazepines Screen,Urine Negative; Cocaine Screen,Urine Negative; Methadone Screen,Urine Negative; Opiate Screen,Urine Negative
[2020-10-13 04:22] LABS: Cannabinoid Screen,Urine Positive
--- NOTE | 2020-10-13 04:23 | Emergency Department Report ---
<BROOKE GARZA - Last Filed: 10/13/20 04:23> ED Psych HPI - General Chief Complaint: Psych Stated Complaint: SUICIDAL Time Seen by Provider: 10/13/20 04:08 Source: patient Mode of arrival: Ambulatory - History of Present Illness Initial Comments: Chief complaint: "I am suicidal. I really am going to kill someone. I need to be placed at a psychiatric facility." HPI: This is a 20-year-old male history of bipolar disorder, schizophrenia, who was recently discharged from this hospital after evaluation for suicidal ideation. He returns 1 day later for feeling "suicidal". He denies any plan to harm self. He also states that "I really am going to kill someone". He denies any physical complaints. He is homeless. He states that he did is not taking his psychiatric meds because he requires transportation. He does not have transportation to local pharmacy. MD Complaint: suicidal ideation, other (Homicidal ideation) -: Gradual, days(s) (Several days) Associated Psychiatric Symptoms: suicidal ideation, homicidal ideation History of same: Yes Quality: constant Improves With: none Worsens With: none Context: not taking psychiatric Associated Symptoms: denies other symptoms Treatments Prior to Arrival: none If Self Harm: admits thoughts of - Related Data Home Medications Medication Instructions Recorded Confirmed Last Taken Divalproex [Josie COX] 750 mg PO BID 10/10/20 10/10/20 Unknown QUEtiapine [SEROquel] 100 mg PO BID 10/10/20 10/10/20 Unknown Previous Rx's Medication Instructions Recorded Last Taken Type Benztropine [Cogentin] 2 mg PO QHS #30 tab 11/29/19 Unknown Rx OLANzapine [ZyPREXA] 5 mg PO QHS #30 tablet 11/29/19 Unknown Rx FLUoxetine [PROzac] 10 mg PO QDAY #30 tablet 10/11/20 Unknown Rx OLANZapine [Zyprexa] 5 mg PO DAILY #30 tablet 10/11/20 Unknown Rx traZODone [Desyrel] 50 mg PO QHS #30 tab 10/11/20 Unknown Rx Allergies Allergy/AdvReac Type Severity Reaction Status Date / Time aripiprazole [From Abilify] Allergy Unknown Verified 10/13/20 16:19 methylphenidate Allergy Unknown Verified 10/13/20 16:19 [From Concerta] risperidone [From Risperdal] AdvReac Unknown Verified 10/13/20 16:19 ED Past Medical Hx - Past Medical History Previous Medical History?: Yes Hx Hypertension: Yes Hx Seizures: Yes Hx Psychiatric Treatment: Yes (schizoaffective and bipolar disorder) - Surgical History Past Surgical History?: Yes Additional Surgical History: breast reduction - Social History Smoking Status: Current Every Day Smoker Substance Use Type: None - Medications Home Medications: Home Medications Medication Instructions Recorded Confirmed Last Taken Type Benztropine [Cogentin] 2 mg PO QHS #30 tab 11/29/19 10/10/20 Unknown Rx OLANzapine [ZyPREXA] 5 mg PO QHS #30 tablet 11/29/19 10/10/[address] [DepaKOTE DR] 750 mg PO BID 10/10/20 10/10/20 Unknown History QUEtiapine [SEROquel] 100 mg PO BID 10/10/20 10/10/20 Unknown History FLUoxetine [PROzac] 10 mg PO QDAY #30 tablet 10/11/20 Unknown Rx OLANZapine [Zyprexa] 5 mg PO DAILY #30 tablet 10/11/20 Unknown Rx traZODone [Desyrel] 50 mg PO QHS #30 tab 10/11/20 Unknown Rx ED Physical Exam - General Limitations: No Limitations General appearance: alert, in no apparent distress - Head Head exam: Present: atraumatic, normocephalic - Eye Eye exam: Present: normal appearance - ENT ENT exam: Present: mucous membranes moist - Neck Neck exam: Present: normal inspection, full ROM - Respiratory Respiratory exam: Present: normal lung sounds bilaterally. Absent: respiratory distress, wheezes, rales, rhonchi - Cardiovascular Cardiovascular Exam: Present: regular rate, normal rhythm, normal heart sounds. Absent: systolic murmur, diastolic murmur, rubs, gallop - GI/Abdominal GI/Abdominal exam: Present: soft, normal bowel sounds. Absent: distended, tenderness, guarding, rebound - Rectal Rectal exam: Present: deferred - Extremities Exam Extremities exam: Present: normal inspection - Neurological Exam Neurological exam: Present: alert, oriented X3 - Psychiatric Psychiatric exam: Present: normal affect, normal mood - Skin Skin exam: Present: warm, dry, intact, normal color. Absent: rash ED Medical Decision Making - Lab Data Result diagrams: 10/13/20 01:43 10/13/20 01:43 Laboratory Results - last 24 hr 10/13/20 10/13/20 10/13/20 01:43 01:43 01:43 WBC RBC Hgb Hct MCV MCH MCHC RDW Plt Count Lymph % (Auto) [place] % (Auto) Eos % (Auto) Baso % (Auto) Lymph # (Auto) [place] # (Auto) Eos # (Auto) Baso # (Auto) Seg Neutrophils % Seg Neutrophils # Sodium 142 Potassium 4.3 Chloride 102.9 Carbon Dioxide 27 Anion Gap 16 BUN 9 Creatinine 0.9 Estimated GFR > 60 BUN/Creatinine Ratio 10 Glucose 101 H Calcium 9.4 Urine Color Urine Turbidity Urine pH Ur Specific [place] Urine Protein Urine Glucose (UA) Urine Ketones Urine Blood Urine Nitrite Urine Bilirubin Urine Urobilinogen Ur Leukocyte Esterase Urine WBC (Auto) Urine RBC (Auto) Urine Mucus Urine Sperm Salicylates < 0.3 L Urine Opiates Screen Urine Methadone Screen Acetaminophen 5.0 L Ur Barbiturates Screen Ur Phencyclidine Scrn Ur Amphetamines Screen U Benzodiazepines Scrn Urine Cocaine Screen Drugs of Abuse Note Plasma/Serum Alcohol 10/13/20 10/13/20 10/13/20 01:43 01:43 Unknown WBC 10.0 RBC 5.00 Hgb 13.8 Hct 41.1 MCV 82 L MCH 28 MCHC 34 RDW 14.6 Plt Count 256 Lymph % (Auto) 38.3 H [place] % (Auto) 9.2 H Eos % (Auto) 1.2 Baso % (Auto) 0.6 Lymph # (Auto) 3.8 [place] # (Auto) 0.9 H Eos # (Auto) 0.1 Baso # (Auto) 0.1 Seg Neutrophils % 50.7 Seg Neutrophils # 5.1 Sodium Potassium Chloride Carbon Dioxide Anion Gap BUN Creatinine Estimated GFR BUN/Creatinine Ratio Glucose Calcium Urine Color Yellow Urine Turbidity Clear Urine pH 5.0 Ur Specific [place] 1.019 Urine Protein <15 mg/dl Urine Glucose (UA) Neg Urine Ketones Neg Urine Blood Neg Urine Nitrite Neg Urine Bilirubin Neg Urine Urobilinogen 2.0 Ur Leukocyte Esterase Neg Urine WBC (Auto) < 1.0 Urine RBC (Auto) 2.0 Urine Mucus Few Urine Sperm Few Salicylates Urine Opiates Screen Urine Methadone Screen Acetaminophen Ur Barbiturates Screen Ur Phencyclidine Scrn Ur Amphetamines Screen U Benzodiazepines Scrn Urine Cocaine Screen Drugs of Abuse Note Plasma/Serum Alcohol < 0.01 10/13/20 Unknown WBC RBC Hgb Hct MCV MCH MCHC RDW Plt Count Lymph % (Auto) [place] % (Auto) Eos % (Auto) Baso % (Auto) Lymph # (Auto) [place] # (Auto) Eos # (Auto) Baso # (Auto) Seg Neutrophils % Seg Neutrophils # Sodium Potassium Chloride Carbon Dioxide Anion Gap BUN Creatinine Estimated GFR BUN/Creatinine Ratio Glucose Calcium Urine Color Urine Turbidity Urine pH Ur Specific [place] Urine Protein Urine Glucose (UA) Urine Ketones Urine Blood Urine Nitrite Urine Bilirubin Urine Urobilinogen Ur Leukocyte Esterase Urine WBC (Auto) Urine RBC (Auto) Urine Mucus Urine Sperm Salicylates Urine Opiates Screen Negative Urine Methadone Screen Negative Acetaminophen Ur Barbiturates Screen Negative Ur Phencyclidine Scrn Negative Ur Amphetamines Screen Negative U Benzodiazepines Scrn Negative Urine Cocaine Screen Negative Drugs of Abuse Note Disclamer Plasma/Serum Alcohol - Medical Decision Making Is a 20-year-old male who presents with homicidal suicidal ideation with a plan to harm himself or others. He admits to being noncompliant with medications. Patient was recently evaluated at this emergency department for similar complaints. He does not appear to be a harm to himself or others. He does not have a plan to harm himself or others. I suspect motivation secondary gain due to homelessness. He is calm and cooperative. He is not responding to internal stimuli. He is medically clear for psychiatric care. CBC chemistry serum toxicology all within normal limits. Urinalysis unremarkable. Urine drug screen positive for marijuana I have consulted mental health team. Awaiting treatment recommendations from psychiatry. ED Disposition Clinical Impression: Schizoaffective disorder, Passive suicidal ideations, Malingerer Disposition: DC-01 TO HOME OR SELFCARE Condition: Stable Instructions: Suicidal Feelings: How to Help Yourself, Supporting Someone With Schizoaffective Disorder Referrals: PRIMARY MD KEANU [Primary Care Provider] - 3-5 Days <CISCO GARZA - Last Filed: 10/15/20 12:50> ED Review of Systems ROS: Stated complaint: SUICIDAL Other details as noted in HPI ED Course Vital Signs 10/13/20 10/13/20 10/13/20 00:46 05:43 10:29 Temperature 98.4 F 97.8 F Pulse Rate 91 H 90 Respiratory 20 16 18 Rate Blood Pressure 132/64 Blood Pressure 146/69 [Right] O2 Sat by Pulse 95 98 Oximetry 10/13/20 10/14/20 10/14/20 19:52 09:51 19:55 Temperature 96.9 F L 97.5 F L 97.9 F Pulse Rate 88 82 84 Respiratory 18 20 18 Rate Blood Pressure Blood Pressure 150/71 141/64 148/97 [Right] O2 Sat by Pulse 96 99 96 Oximetry 10/15/20 10/15/20 05:05 10:28 Temperature 98.0 F Pulse Rate 85 74 Respiratory 18 18 Rate Blood Pressure Blood Pressure 115/72 122/63 [Right] O2 Sat by Pulse 97 98 Oximetry - Reevaluation(s) Reevaluation #1: 10/15/20 12:48 Event Note Patient Name: IESHA GONZALEZ Date of : 89 Patient Status: Emergency Emergency Provider: KEZIA MADRID Date: 10/15/20 12:27 Initialization Date: 10/15/20 12:27 Date: 10/15/20 The patient stopped me in the ngo while signing scripts for other patients. He says he is no longer suicidal nor homicidal. He also denies any fear of endangerment for himself or others. The patient also denies hallucinations of any kind. Dr. Garza also stopped me while speaking to another patient and said the patient has also told him he is no longer suicidal or homicidal. Will clear the patient from a psych standpoint. Dr. Garza is in agreement with decision. The patient can continue his previously prescribed meds and follow up with outpatient psychiatry in 7 to 14 days. The patient verbalizes understanding that if SI/HI are to return he is to seek immediate assistance. Personal Loan Specialist to further discuss the safety plan with the patient and document outcome. Reevaluation #2: 10/15/20 12:48 Of seeing the patient for several days now the patient has been quite jovial here in the department. When asked he is been stating that he is still suicidal. Today states he is not suicidal and he actually no longer wants to be here. Do question the patient's motives to say he is suicidal as again he has been very jovial here in the department. Likely here for secondary gain but has gotten to the point where he is no longer meeting the needs he has been gaining by being here. Someone who he met who was having quite a bit of fun with got discharged yesterday which is likely the cause of the patient's change in his suicidal history. Patient will be discharged home. ED Medical Decision Making - Lab Data Result diagrams: 10/13/20 01:43 10/13/20 01:43 Critical care attestation.: If time is entered above; I have spent that time in minutes in the direct care of this critically ill patient, excluding procedure time. ED Disposition Is pt being admited?: No Does the pt Need Aspirin: No Time of Disposition: 12:50
--- NOTE | 2020-10-13 11:02 | Event Note ---
Date: 10/13/20 Vital signs stable. Labs within acceptable parameters. Patient examined. He is in no distress. He is poorly cooperative. He states "I have no love for the world". "I want to kill everyone". The patient was asked regarding his multiple presentations to this facility under similar circumstances. He provided no historical information. He was asked regarding previous psychiatric hospitalizations. He provided no historical information. He denies being on any medications. One would suspect homelessness and secondary gain. However, with these homicidal threats a 1013 was executed. Patient is not agitated nor apparently violent at this time. He just wants to rest with the lights off. Psychiatric evaluation is pending. I will executed 1013 for now. He should be considered to be hold status.
--- NOTE | 2020-10-13 12:05 | Consultation ---
History of Present Illness - Reason for Consult Consult date: 10/13/20 Reason for consult: homicidal - History of Present Psychiatric Illness Toy Thao is a 20y/o male patient I discharged from the ER a few days ago. The patient states he came back because he wants to kill his mother. He says "she is taking my money." The patient says he needs another place to live. He says he wants to get hit by a train because his mother is taking advantage of him. The patient also verbalize hallucinations telling him to kill people. PAST PSYCHIATRIC HISTORY: Diagnoses: Depression, bipolar Suicide attempts or Self-harm behavior: yes Prior psychiatric hospitalizations: yes Substance Abuse history: Nicotine Previous psychiatric medications tried: Yes Outpatient treatment: Denies PAST MEDICAL HISTORY: None reported Family Psychiatric History: None reported or documented SOCIAL HISTORY Marital Status: Single Living Arrangements: with mother Employment Status: Disabled Access to guns/weapons: Denies Education: high school History of Abuse: Denies Legal History: Denies MENTAL STATUS EXAMINATION General Appearance and Behavior: Age appropriate, good hygiene, Poor eye contact, cooperative Cooperation: withdrawn Psychomotor Behavior: Psychomotor normal Mood: "not good, upset" Affect and affective range: restricted Thought Process: Speech: Normal tone and pace Thought Content Suicidal Ideation: Yes Homicidal Ideation: Yes Hallucinations: Auditory Delusions: None elicited Impulse Control: Impaired Insight and Judgment: Impaired insight and judgment Memory: Normal Attention: Divided attention impaired Orientation: A/o x 3 Assessment and Plan (1)Bipolar Disorder Treatment Plan 1013 Case management consult to have the patient placed in a usp Olanzapine 5mg po BID Prozac 10mg po daily Trazodone 50mg po qhs Geodon 20mg IM q4h prn agitation Sitter: Defer to primary Medical: Per primary Disposition: Recommend acute psychiatric treatment Sitter to provide resources for outpatient psych Will follow. Thank you for this consult Case staffed with Dr. Yeager. Medications and Allergies Allergies Allergy/AdvReac Type Severity Reaction Status Date / Time aripiprazole [From Abilify] Allergy Unknown Verified 03/24/19 10:31 methylphenidate Allergy Unknown Verified 03/24/19 10:31 [From Concerta] Home Medications Medication Instructions Recorded Confirmed Last Taken Type Benztropine [Cogentin] 2 mg PO QHS #30 tab 11/29/19 10/10/20 Unknown Rx OLANzapine [ZyPREXA] 5 mg PO QHS #30 tablet 11/29/19 10/10/[address] [DepaKOTE DR] 750 mg PO BID 10/10/20 10/10/20 Unknown History QUEtiapine [SEROquel] 100 mg PO BID 10/10/20 10/10/20 Unknown History FLUoxetine [PROzac] 10 mg PO QDAY #30 tablet 10/11/20 Unknown Rx OLANZapine [Zyprexa] 5 mg PO DAILY #30 tablet 10/11/20 Unknown Rx traZODone [Desyrel] 50 mg PO QHS #30 tab 10/11/20 Unknown Rx Mental Status Exam - Vital signs Last Vital Signs Temp 97.8 F 10/13/20 10:29 Pulse 90 10/13/20 10:29 Resp 18 10/13/20 10:29 BP 146/69 10/13/20 10:29 Pulse Ox 98 10/13/20 10:29 Results Result Diagrams: 10/13/20 01:43 10/13/20 01:43 Abnormal lab results 10/13/20 10/13/20 10/13/20 Range/Units 01:43 01:43 01:43 MCV (84-94) fl Lymph % (Auto) (13.4-35.0) % [place] % (Auto) (0.0-7.3) % [place] # (Auto) (0.0-0.8) K/mm3 Glucose 101 H (75-100) mg/dL Salicylates < 0.3 L (2.8-20.0) mg/dL Acetaminophen 5.0 L (10.0-30.0) ug/mL 10/13/20 Range/Units 01:43 MCV 82 L (84-94) fl Lymph % (Auto) 38.3 H (13.4-35.0) % [place] % (Auto) 9.2 H (0.0-7.3) % [place] # (Auto) 0.9 H (0.0-0.8) K/mm3 Glucose (75-100) mg/dL Salicylates (2.8-20.0) mg/dL Acetaminophen (10.0-30.0) ug/mL All other labs normal.
[2020-10-13] MEDS ORDERED: ZIPRASIDONE MESYLATE 20 MG VIAL IM PRN (12:12)
[2020-10-13] MEDS: FLUoxetine 10 MG TAB PO SCH (22:49)
[2020-10-13] MEDS: traZODone 50 MG TAB PO SCH (22:50)
[2020-10-14] MEDS: FLUoxetine 10 MG TAB PO SCH (10:29)
--- NOTE | 2020-10-14 11:56 | Progress Note ---
Subjective - Reason for Consult Consult date: 10/14/20 Reason for consult: agitation - Chief Complaint Chief complaint: The patient was seen today, he still endorses suicidal and homicidal thoughts. He says he's hearing voices telling him to kill people. REVIEW OF SYSTEMS Constitutional: Negative for weight loss ENT: Negative for stridor Respiratory: Negative for cough or hemoptysis All other systems reviewed and are negative MENTAL STATUS EXAMINATION General Appearance and Behavior: Age appropriate, good hygiene, Poor eye contact, cooperative Cooperation: withdrawn Psychomotor Behavior: Psychomotor normal Mood: "not good, upset" Affect and affective range: restricted Thought Process: Speech: Normal tone and pace Thought Content Suicidal Ideation: Yes Homicidal Ideation: Yes Hallucinations: Auditory Delusions: None elicited Impulse Control: Impaired Insight and Judgment: Impaired insight and judgment Memory: Normal Attention: Divided attention impaired Orientation: A/o x 3 Assessment and Plan (1)Bipolar Disorder Treatment Plan 1013 Case management consult to have the patient placed in a detention Increase Olanzapine 7.5mg po BID Increase Prozac 20mg po daily Start Depakote DR 125mg po BID Trazodone 50mg po qhs Geodon 20mg IM q4h prn agitation Sitter: Defer to primary Medical: Per primary Disposition: Recommend acute psychiatric treatment Sitter to provide resources for outpatient psych Will follow. Thank you for this consult Case staffed with Dr. Yeager. Mental Status Exam - Vital signs Last Vital Signs Temp 97.5 F L 10/14/20 09:51 Pulse 82 10/14/20 09:51 Resp 20 10/14/20 09:51 BP 141/64 10/14/20 09:51 Pulse Ox 99 10/14/20 09:51
--- NOTE | 2020-10-14 12:02 | Event Note ---
Date: 10/14/20 Patient still is endorsing suicidal ideations to her mental health assessment team. Patient continued on a 1013. Evaluated the patient today and he seems of good spirit. Patient having no issues and he is still medically cleared. Psychiatry Progress Note Patient Name: IESHA GONZALEZ Date of : 89 Patient Status: Emergency Emergency Provider: KEZIA MADRID Date: 10/14/20 11:55 Initialization Date: 10/14/20 11:55 Subjective - Reason for Consult Consult date: 10/14/20 Reason for consult: agitation - Chief Complaint Chief complaint: The patient was seen today, he still endorses suicidal and homicidal thoughts. He says he's hearing voices telling him to kill people. REVIEW OF SYSTEMS Constitutional: Negative for weight loss ENT: Negative for stridor Respiratory: Negative for cough or hemoptysis All other systems reviewed and are negative MENTAL STATUS EXAMINATION General Appearance and Behavior: Age appropriate, good hygiene, Poor eye contact, cooperative Cooperation: withdrawn Psychomotor Behavior: Psychomotor normal Mood: "not good, upset" Affect and affective range: restricted Thought Process: Speech: Normal tone and pace Thought Content Suicidal Ideation: Yes Homicidal Ideation: Yes Hallucinations: Auditory Delusions: None elicited Impulse Control: Impaired Insight and Judgment: Impaired insight and judgment Memory: Normal Attention: Divided attention impaired Orientation: A/o x 3 Assessment and Plan (1)Bipolar Disorder Treatment Plan 1013 Case management consult to have the patient placed in a fci Olanzapine 5mg po BID Prozac 10mg po daily Trazodone 50mg po qhs Geodon 20mg IM q4h prn agitation Sitter: Defer to primary Medical: Per primary Disposition: Recommend acute psychiatric treatment Sitter to provide resources for outpatient psych Will follow. Thank you for this consult Case staffed with Dr. Yeager.
[2020-10-14] MEDS: DIVALPROEX DR 125 MG TAB PO SCH ×2 (14:02→22:00)
[2020-10-14] MEDS: traZODone 50 MG TAB PO SCH (22:00)
[2020-10-15] MEDS ORDERED: FLUoxetine 20 MG CAP PO SCH (10:00)
[2020-10-15 10:28] VITALS: BP 122/63
--- NOTE | 2020-10-15 10:30 | Progress Note ---
Subjective - Reason for Consult Consult date: 10/15/20 Reason for consult: aggression - Chief Complaint Chief complaint: The patient was seen today, he still endorses suicidal and homicidal thoughts. He says he's hearing voices telling him to kill people. He says "I want to kill everybody." The nurse reports that the patient has been urinating in the trash cans. REVIEW OF SYSTEMS Constitutional: Negative for weight loss ENT: Negative for stridor Respiratory: Negative for cough or hemoptysis All other systems reviewed and are negative MENTAL STATUS EXAMINATION General Appearance and Behavior: Age appropriate, good hygiene, Poor eye contact, cooperative Cooperation: withdrawn Psychomotor Behavior: Psychomotor normal Mood: "not good, upset" Affect and affective range: restricted Thought Process: Speech: Normal tone and pace Thought Content Suicidal Ideation: Yes Homicidal Ideation: Yes Hallucinations: Auditory Delusions: None elicited Impulse Control: Impaired Insight and Judgment: Impaired insight and judgment Memory: Normal Attention: Divided attention impaired Orientation: A/o x 3 Assessment and Plan (1)Bipolar Disorder Treatment Plan 1013 Case management consult to have the patient placed in a prison Increase Olanzapine 10mg po BID Continue Prozac 20mg po daily Increase Depakote DR 250mg po BID Trazodone 50mg po qhs Geodon 20mg IM q4h prn agitation Sitter: Defer to primary Medical: Per primary Disposition: Recommend acute psychiatric treatment Sitter to provide resources for outpatient psych Will follow. Thank you for this consult Case staffed with Dr. Yeager. Mental Status Exam - Vital signs Last Vital Signs Temp 98.0 F 10/15/20 05:05 Pulse 74 10/15/20 10:28 Resp 18 10/15/20 10:28 BP 122/63 10/15/20 10:28 Pulse Ox 98 10/15/20 10:28
--- NOTE | 2020-10-15 11:16 | Event Note ---
Date: 10/15/20 Patient calm and cooperative overnight. Having no further complaints. He was seen by our mental health professionals who have continued the patient on a 1013 are still awaiting placement. Patient is being medicated. Vital signs stable. Psychiatry Progress Note Patient Name: IESHA GONZALEZ Date of : 89 Patient Status: Emergency Emergency Provider: JULIUSKEZIA Reggie Date: 10/15/20 10:29 Initialization Date: 10/15/20 10:29 Subjective - Reason for Consult Consult date: 10/15/20 Reason for consult: aggression - Chief Complaint Chief complaint: The patient was seen today, he still endorses suicidal and homicidal thoughts. He says he's hearing voices telling him to kill people. He says "I want to kill everybody." The nurse reports that the patient has been urinating in the trash cans. REVIEW OF SYSTEMS Constitutional: Negative for weight loss ENT: Negative for stridor Respiratory: Negative for cough or hemoptysis All other systems reviewed and are negative MENTAL STATUS EXAMINATION General Appearance and Behavior: Age appropriate, good hygiene, Poor eye contact, cooperative Cooperation: withdrawn Psychomotor Behavior: Psychomotor normal Mood: "not good, upset" Affect and affective range: restricted Thought Process: Speech: Normal tone and pace Thought Content Suicidal Ideation: Yes Homicidal Ideation: Yes Hallucinations: Auditory Delusions: None elicited Impulse Control: Impaired Insight and Judgment: Impaired insight and judgment Memory: Normal Attention: Divided attention impaired Orientation: A/o x 3 Assessment and Plan (1)Bipolar Disorder Treatment Plan 1013 Case management consult to have the patient placed in a prison Increase Olanzapine 10mg po BID Continue Prozac 20mg po daily Increase Depakote DR 250mg po BID Trazodone 50mg po qhs Geodon 20mg IM q4h prn agitation Sitter: Defer to primary Medical: Per primary Disposition: Recommend acute psychiatric treatment Sitter to provide resources for outpatient psych Will follow. Thank you for this consult Case staffed with Dr. Yeager.
[2020-10-15] MEDS: DIVALPROEX DR 125 MG TAB PO SCH (11:38)
--- NOTE | 2020-10-15 12:31 | Event Note ---
Date: 10/15/20 The patient stopped me in the ngo while signing scripts for other patients. He says he is no longer suicidal nor homicidal. He also denies any fear of endangerment for himself or others. The patient also denies hallucinations of any kind. Dr. Garza also stopped me while speaking to another patient and said the patient has also told him he is no longer suicidal or homicidal. Will clear the patient from a psych standpoint. Dr. Garza is in agreement with decision. The patient can continue his previously prescribed meds and follow up with out patient psychiatry in 7 to 14 days. The patient verbalizes understanding that if SI/HI are to return he is to seek immediate assistance. Slot Supervisor to further discuss the safety plan with the patient and document outcome.
[2020-10-15] MEDS ORDERED: DIVALPROEX DR 250 MG TAB PO SCH (22:00)
== END 2020-10-15 13:25 | disposition home or self-care (01) ==
LOC: ED 22:36 → EEVIPCON 22:36 → ED 10-15 13:25
DX: R45.851 Suicidal ideations (principal); Z20.822 Contact with and (suspected) exposure to COVID-19; F25.9 Schizoaffective disorder, unspecified; Z76.5 Malingerer [conscious simulation]; I10 Essential (primary) hypertension; R56.9 Unspecified convulsions; F17.200 Nicotine dependence, unspecified, uncomplicated; Z98.890 Other specified postprocedural states; Z79.899 Other long term (current) drug therapy; Z88.8 Allergy status to other drugs, medicaments and biological substances
CPT/HCPCS: 36415; 80048; 80307; 81001; 85025; 99285; U0003; 80320; G0480

== ENCOUNTER 2020-11-08 20:30 | Emergency (ER) | payer MEDICAID ==
--- NOTE | 2020-11-08 23:56 | Emergency Department Report ---
<JOCELYN LYNN S - Last Filed: 11/09/20 13:28> ED Psych HPI - General Chief Complaint: Psych Stated Complaint: SI Time Seen by Provider: 11/08/20 23:51 - Related Data Home Medications Medication Instructions Recorded Confirmed Last Taken Divalproex [Josie REECE] 750 mg PO BID 10/10/20 10/10/20 Unknown QUEtiapine [SEROquel] 100 mg PO BID 10/10/20 10/10/20 Unknown Previous Rx's Medication Instructions Recorded Last Taken Type Benztropine [Cogentin] 2 mg PO QHS #30 tab 11/29/19 Unknown Rx OLANzapine [ZyPREXA] 5 mg PO QHS #30 tablet 11/29/19 Unknown Rx FLUoxetine [PROzac] 10 mg PO QDAY #30 tablet 10/11/20 Unknown Rx OLANZapine [Zyprexa] 5 mg PO DAILY #30 tablet 10/11/20 Unknown Rx traZODone [Desyrel] 50 mg PO QHS #30 tab 10/11/20 Unknown Rx Allergies Allergy/AdvReac Type Severity Reaction Status Date / Time aripiprazole [From Abilify] Allergy Unknown Verified 10/13/20 16:19 methylphenidate Allergy Unknown Verified 10/13/20 16:19 [From Concerta] risperidone [From Risperdal] AdvReac Unknown Verified 10/13/20 16:19 ED Past Medical Hx - Medications Home Medications: Home Medications Medication Instructions Recorded Confirmed Last Taken Type Benztropine [Cogentin] 2 mg PO QHS #30 tab 11/29/19 10/10/20 Unknown Rx OLANzapine [ZyPREXA] 5 mg PO QHS #30 tablet 11/29/19 10/10/20 Unknown Rx Divalproex [Josie REECE] 750 mg PO BID 10/10/20 10/10/20 Unknown History QUEtiapine [SEROquel] 100 mg PO BID 10/10/20 10/10/20 Unknown History FLUoxetine [PROzac] 10 mg PO QDAY #30 tablet 10/11/20 Unknown Rx OLANZapine [Zyprexa] 5 mg PO DAILY #30 tablet 10/11/20 Unknown Rx traZODone [Desyrel] 50 mg PO QHS #30 tab 10/11/20 Unknown Rx ED Medical Decision Making - Lab Data Result diagrams: 11/09/20 00:01 11/09/20 00:01 - Medical Decision Making This patient presented late last night with a complaint of suicidal ideations and for this reason he was made a 1013 and placed on ED hold by my colleague. He was seen by the psychiatric team this morning and admits that he just claimed suicidal ideations because he had nowhere else to go/sleep last night. The patient denies any current suicidal ideations. Initially we were going to get the patient some help from case management, but the patient refuses. Labs have been mostly unremarkable except for UDS positive for marijuana. Vital signs reassuring including being afebrile. I discussed with the patient the need to follow-up with outpatient behavioral health resources, but to go to the closest emergency department with any worsening of his symptoms, thoughts of harming himself or others, or with any acute distress. Critical Care Time: No ED Disposition Clinical Impression: Suicidal ideations, Schizoaffective disorder, Bipolar disorder, Elevated blood pressure reading Disposition: TO HOME OR SELFCARE Is pt being admited?: No Condition: Stable Instructions: Managing Bipolar Disorder, Schizoaffective Disorder Additional Instructions: Please follow-up with one of the psychiatric and/or behavioral health resources listed below. Please follow-up with a primary care physician. Return to the emergency department with any worsening of your symptoms, thoughts of harming your self or others, or with any acute distress. Professional and Agency Contacts To help [facility](28/11) [place] Crisis Line: Suicide Prevention Line: Crisis Text Line: Text START to 388078 Emergency: 911 Outpatient COMMUNITY Behavioral Health Resources: [facility]: [facility] [address] [place], [place] [address] [place]: [facility] [address] [place] [address] [place]: [facility] - [address] [place] [address] Monday thru Monday - 8am - 5pm [place]: [facility] Service Address: [employer] [address], [place] [address] [facility] Address: [address] [place] [address] Monday thru Monday- 7am-2pm [facility] Address: [address] [place] [address] Monday thru Monday: 8:30AM-5PM In case of an emergency, please contact the following numbers: [place] Crisis and Access Line: Number: Crisis Text Line: (Text START) Number: 540034 Suicide Prevention Line: Number: Emergency Number: 911 SUBSTANCE ABUSE PROGRAMS: [facility]: Location: [place], [place] [facility] Address: [address] [place] [address] [facility] Recovery: Address: [address] [place] [address] [facility]: Address: [address] [place] [address] [facility] Community: Address: [address] [place] [address] [facility] Address: [address] [place] [address]. Please contact above numbers to attempt placement into free based program. Medicaid Programs: [facility]: Address: [address] [place] [address] [facility]: Address: [address] [place] [address] Referrals: PRIMARY CARE, [Primary Care Provider] - 3-5 Days Time of Disposition: 13:29 <AURELIA AMAYA - Last Filed: 11/09/20 21:46> ED Psych HPI - General Source: patient Mode of arrival: Ambulatory - History of Present Illness Initial Comments: Patient is 20 years old male with history of schizophrenia and bipolar disorder. Patient presented to the ER via EMS from home for evaluation of suicidal ideation. Patient stated that he is having thoughts of killing himself by running into traffic. Patient denied any homicidal ideation. No visual or auditory hallucination. MD Complaint: suicidal ideation, feels depressed -: days(s) Associated Psychiatric Symptoms: depression, suicidal ideation History of same: Yes Quality: constant Associated Symptoms: denies other symptoms If Self Harm: admits thoughts of, self-inflicted trauma ED Review of Systems ROS: Stated complaint: SI Other details as noted in HPI Comment: All other systems reviewed and negative Constitutional: denies: chills, fever Respiratory: denies: cough, shortness of breath, SOB with exertion Cardiovascular: denies: chest pain, palpitations Gastrointestinal: denies: abdominal pain, nausea, vomiting Musculoskeletal: denies: back pain Neurological: denies: headache, weakness, numbness, paresthesias, confusion ED Past Medical Hx - Past Medical History Previous Medical History?: No Hx Hypertension: Yes Hx Seizures: Yes Hx Psychiatric Treatment: Yes (schizoaffective and bipolar disorder) - Surgical History Past Surgical History?: No Additional Surgical History: breast reduction - Social History Smoking Status: Never Smoker ED Physical Exam - General Limitations: No Limitations General appearance: alert, in no apparent distress - Head Head exam: Present: atraumatic, normocephalic, normal inspection - Eye Eye exam: Present: normal appearance, PERRL - ENT ENT exam: Present: normal exam, normal orophraynx, mucous membranes moist - Neck Neck exam: Present: normal inspection, full ROM. Absent: tenderness, meningismus - Respiratory Respiratory exam: Present: normal lung sounds bilaterally - Cardiovascular Cardiovascular Exam: Present: regular rate, normal rhythm, normal heart sounds - GI/Abdominal GI/Abdominal exam: Present: soft, normal bowel sounds. Absent: distended, ten derness, guarding, rebound, rigid, organomegaly, mass, bruit, pulsatile mass, hernia - Extremities Exam Extremities exam: Present: normal inspection, full ROM, normal capillary refill. Absent: tenderness, pedal edema, joint swelling, calf tenderness - Back Exam Back exam: Present: normal inspection, full ROM. Absent: CVA tenderness (R), CVA tenderness (L) - Neurological Exam Neurological exam: Present: alert, oriented X3, CN II-XII intact - Psychiatric Psychiatric exam: Present: flat affect, suicidal ideation. Absent: agitated, homicidal ideation - Skin Skin exam: Present: warm, intact, normal color ED Course Vital Signs 11/08/20 11/09/20 11/09/20 21:19 02:09 07:54 Temperature 99.0 F 98.2 F 97.9 F Pulse Rate 106 H 98 H 90 Respiratory 0 L 18 20 Rate Blood Pressure 150/85 Blood Pressure 119/80 153/101 [Left] O2 Sat by Pulse 97 97 100 Oximetry ED Medical Decision Making - Lab Data Result diagrams: 11/09/20 00:01 11/09/20 00:01 - Medical Decision Making Patient is 20 years old male with history of schizophrenia and bipolar disorder. Patient presented to the ER via EMS from home for evaluation of suicidal ideation. Patient stated that he is having thoughts of killing himself by running into traffic. Patient denied any homicidal ideation. No visual or auditory hallucination. Labs reviewed and is unremarkable. Patient is medically cleared to be evaluated by psychiatric team. Critical care attestation.: If time is entered above; I have spent that time in minutes in the direct care of this critically ill patient, excluding procedure time.
[2020-11-09 00:14] LABS: Basophils % (Auto) 0.5 % (0.0-1.8); Eosinophils # (Auto) 0.1 K/mm3 (0.0-0.4); Hematocrit 40.6 % (35.5-45.6); Hemoglobin 13.4 gm/dl (11.8-15.2); Lymphocytes # (Auto) 3.2 K/mm3 (1.2-5.4); Lymphocytes % (Auto) 33.1 % (13.4-35.0); Mean Corpuscular HGB Conc 33 % (32-34); Mean Corpuscular Volume 82 fl (84-94); Monocytes % (Auto) 10.5 % (0.0-7.3); Platelet Count 221 K/mm3 (140-440); Red Blood Count 4.95 M/mm3 (3.65-5.03); Red Cell Distribution Width 14.3 % (13.2-15.2)
[2020-11-09 00:34] LABS: BUN/Creatinine Ratio 11; Blood Urea Nitrogen 10 mg/dL (9-20); Hemolysis Index 1
[2020-11-09 07:55] VITALS: BP 153/101
--- NOTE | 2020-11-09 08:46 | Consultation ---
History of Present Illness - Reason for Consult Consult date: 11/09/20 Reason for consult: SI - History of Present Psychiatric Illness Patient is 20 years old male with history of schizophrenia and bipolar disorder. Patient presented to the ER via EMS from home for evaluation of suicidal ideation. Patient stated that he is having thoughts of killing himself by justin ng into traffic. Patient denied any homicidal ideation. No visual or auditory hallucination. Toy Thao is a 20y/o male patient who is known to me from previous visits. He is a/o x 3. He is calm and cooperative, and polite. When asking the patient what brought him to the hospital, he says "I didn't have anywhere to stay." I asked the patient if he wanted me to call his mother, he said "no." I also asked him what happened at the [facility] her was at, he says he didn't want to stay there. He says he has income coming in monthly. I mentioned the option of the long term, he initially says "I don't want to stay in a long term." When explaining to the patient what a long term would be like, he asked me how would he go about it. I informed him that I would have the dock supervisor or onsite case manager to give him numbers to call in order to obtain one. The patient states, "can I leave now. I'm not suicidal or homicidal." I asked him about him telling doctors he was suicidal when he came in, the patient replies "I don't have a place to go, that's why." I told him to give the assessors time to come on and give him the resources. He also denies hallucinations of any kind. PAST PSYCHIATRIC HISTORY: Diagnoses: Depression, bipolar Suicide attempts or Self-harm behavior: yes Prior psychiatric hospitalizations: yes Substance Abuse history: Nicotine Previous psychiatric medications tried: Yes Outpatient treatment: Denies PAST MEDICAL HISTORY: None reported Family Psychiatric History: None reported or documented SOCIAL HISTORY Marital Status: Single Living Arrangements: with mother Employment Status: Disabled Access to guns/weapons: Denies Education: high school History of Abuse: Denies Legal History: Denies MENTAL STATUS EXAMINATION General Appearance and Behavior: Age appropriate, good hygiene, good eye contact, calm, cooperative and polite Cooperation: engaging Psychomotor Behavior: Psychomotor normal Mood: "good" Affect and affective range: congruent with stated mood Thought Process: goal directed Speech: Normal tone and pace Thought Content Suicidal Ideation: Denies Homicidal Ideation: Denies Hallucinations: Denies Delusions: None elicited Impulse Control: Unimpaired Insight and Judgment: Limited insight and judgment Memory: Normal Attention: Undvided attention impaired Orientation: A/o x 3 Assessment and Plan (1)Bipolar Disorder Treatment Plan D/c 1013 The patient is to receive resources from dock supervisor or case management for long term prior to discharge Continue previously prescribed meds Case management consult to have the patient placed in a long term Sitter: Defer to primary Medical: Per primary Disposition: Do not recommend acute psychiatric treatment. The patient understands that if SI/HI or any fear of endangerment are to return he is to seek immediate assistance. The dock supervisor to further discuss safety plan Sales Superintendent to provide resources for outpatient psych, group homes, ch[facility], CBT, med assistance program, and transportation pass. The patient to follow up with outpatient psych in 7 to 14 days upon discharge Will sign off. Thank you for this consult Case staffed with Dr. Yeager. Medications and Allergies Allergies Allergy/AdvReac Type Severity Reaction Status Date / Time aripiprazole [From Abilify] Allergy Unknown Verified 10/13/20 16:19 methylphenidate Allergy Unknown Verified 10/13/20 16:19 [From Concerta] risperidone [From Risperdal] AdvReac Unknown Verified 10/13/20 16:19 Home Medications Medication Instructions Recorded Confirmed Last Taken Type Benztropine [Cogentin] 2 mg PO QHS #30 tab 11/29/19 10/10/20 Unknown Rx OLANzapine [ZyPREXA] 5 mg PO QHS #30 tablet 11/29/19 10/10/20 Unknown Rx Divalproex [Josie COX] 750 mg PO BID 10/10/20 10/10/20 Unknown History QUEtiapine [SEROquel] 100 mg PO BID 10/10/20 10/10/20 Unknown History FLUoxetine [PROzac] 10 mg PO QDAY #30 tablet 10/11/20 Unknown Rx OLANZapine [Zyprexa] 5 mg PO DAILY #30 tablet 10/11/20 Unknown Rx traZODone [Desyrel] 50 mg PO QHS #30 tab 10/11/20 Unknown Rx Mental Status Exam - Vital signs Last Vital Signs Temp 97.9 F 11/09/20 07:54 Pulse 90 11/09/20 07:54 Resp 20 11/09/20 07:54 BP 153/101 11/09/20 07:54 Pulse Ox 100 11/09/20 07:54 Results Result Diagrams: 11/09/20 00:01 11/09/20 00:01 Abnormal lab results 11/09/20 11/09/20 11/09/20 Range/Units 00:01 00:01 00:01 MCV 82 L (84-94) fl MCH 27 L (28-32) pg [place] % (Auto) 10.5 H (0.0-7.3) % [place] # (Auto) 1.0 H (0.0-0.8) K/mm3 Salicylates < 0.3 L (2.8-20.0) mg/dL Acetaminophen 5.0 L (10.0-30.0) ug/mL All other labs normal.
[2020-11-09 10:39] LABS: Bilirubin,Urine NEG (Negative); Blood,Urine NEG (Negative); Color,Urine Yellow (Yellow); Protein,Urine <15 mg/dL mg/dL (Negative); RBC,Urine < 1.0 /HPF (0.0-6.0); Urobilinogen,Urine < 2.0 mg/dL (<2.0); WBC,Urine < 1.0 /HPF (0.0-6.0)
[2020-11-09 10:51] LABS: Amphetamine Screen,Urine PRESUMPTIVE NEGATIVE; Benzodiazepines Screen,Urine PRESUMPTIVE NEGATIVE; Cannabinoid Screen,Urine PRESUMPTIVE POSITIVE; Cocaine Screen,Urine PRESUMPTIVE NEGATIVE; Methadone Screen,Urine PRESUMPTIVE NEGATIVE; Opiate Screen,Urine PRESUMPTIVE NEGATIVE
--- NOTE | 2020-11-09 10:55 | Event Note ---
Date: 11/09/20 This patient presented yesterday evening and originally made the complaints of suicidal ideations with a plan to run into traffic. For this reason he was made a 1013 and placed on an ED hold by my colleague. He was also medically cleared at that time. The patient saw the psychiatric midlevel provider today and now admits that he just claimed suicidal ideations because he had nowhere to stay. The patient does not want to stay with his mother. He did not want to stay at a homeless assisted. He has been cleared by the psychiatric team. I saw this patient this morning as well and once again he denies any suicidal or homicidal ideations. He does not appear to require a 1013 or ED hold at this time. It appears that a case management consult has been placed to assist with disposition, but otherwise he will be discharged from the emergency department. I will continue to monitor him during his ED course until the discharge takes place. The labs obtained have been reviewed and are unremarkable including CBC, metabolic panel, acetaminophen, salicylate, blood alcohol levels and UA. Vital signs, listed below, are reassuring including being afebrile. Vital Signs - 24 hr 11/08/20 11/09/20 11/09/20 21:19 02:09 07:54 Temperature 99.0 F 98.2 F 97.9 F Pulse Rate 106 H 98 H 90 Respiratory 0 L 18 20 Rate Blood Pressure 150/85 Blood Pressure 119/80 153/101 [Left] O2 Sat by Pulse 97 97 100 Oximetry
== END 2020-11-09 14:14 | disposition home or self-care (01) ==
LOC: ED 20:30
DX: F25.0 Schizoaffective disorder, bipolar type (principal); R03.0 Elevated blood-pressure reading, without diagnosis of hypertension; R45.851 Suicidal ideations; I10 Essential (primary) hypertension; Z86.69 Personal history of other diseases of the nervous system and sense organs; Z98.890 Other specified postprocedural states; Z20.822 Contact with and (suspected) exposure to COVID-19; Z88.8 Allergy status to other drugs, medicaments and biological substances
CPT/HCPCS: 36415; 80048; 80307; 81001; 85025; 99284; U0003; 80320; G0480

== ENCOUNTER 2020-12-17 02:23 | Emergency (ER) | payer MEDICAID ==
[2020-12-17 04:26] LABS: Bilirubin,Urine NEG (Negative); Blood,Urine NEG (Negative); Color,Urine Yellow (Yellow); Protein,Urine <15 mg/dL mg/dL (Negative)
[2020-12-17 04:34] LABS: Amphetamine Screen,Urine PRESUMPTIVE NEGATIVE; Benzodiazepines Screen,Urine PRESUMPTIVE NEGATIVE; Cannabinoid Screen,Urine PRESUMPTIVE POSITIVE; Cocaine Screen,Urine PRESUMPTIVE NEGATIVE; Methadone Screen,Urine PRESUMPTIVE NEGATIVE; Opiate Screen,Urine PRESUMPTIVE NEGATIVE
--- NOTE | 2020-12-17 04:43 | Emergency Department Report ---
<NEHEMIAS CARLOS III - Last Filed: 12/17/20 06:05> ED Psych HPI - General Chief Complaint: Psych Stated Complaint: MH EVAL Time Seen by Provider: 12/17/20 04:22 Source: patient, EMS Mode of arrival: Ambulatory Limitations: No Limitations - History of Present Illness Initial Comments: Patient is a 20-year-old male that presents emergency room with complaints of depression and suicidal ideation. Patient states he had an attempt today. Patient states he was in traffic trying to get hit by car. Patient states he tried this 1 month ago. Patient states he just wants to . Patient states he needs help. Patient states he also needs a place to stay. Patient states he always has a plan to run into traffic. Patient denies homicidal ideation. Patient complains of anxiety and depression. Patient denies hallucinations. Patient denies recent travel. Patient denies recent international travel. Patient denies exposure to the novel coronavirus. Patient denies sick contacts. Patient denies fever and chills. Patient denies cough. Patient denies diarrhea. Patient denies coming in contact with anybody with symptoms of the novel coronavirus. MD Complaint: suicidal ideation, feels depressed -: Sudden Associated Psychiatric Symptoms: depression, suicidal ideation, racing thoughts History of same: Yes Quality: constant Improves With: none Worsens With: none Context: significant life stressor Associated Symptoms: denies: confusion, headache, shortness of breath, nausea, vomiting, syncope, insomnia If Self Harm: admits thoughts of, has plan, has acted on plan - Related Data Home Medications Medication Instructions Recorded Confirmed Last Taken Divalproex Dr Terri COX] 750 mg PO BID 10/10/20 10/10/20 Unknown QUEtiapine [SEROquel] 100 mg PO BID 10/10/20 10/10/20 Unknown Previous Rx's Medication Instructions Recorded Last Taken Type OLANzapine [ZyPREXA] 5 mg PO QHS #30 tablet 11/29/19 Unknown Rx Benztropine [Cogentin] 2 mg PO QHS #30 tab 12/18/[address] Terri COX] 500 mg PO BID #60 tablet 12/18/20 Unknown Rx FLUoxetine [PROzac] 10 mg PO QDAY #30 tablet 12/18/20 Unknown Rx OLANZapine [Zyprexa] 5 mg PO DAILY #30 tablet 12/18/20 Unknown Rx traZODone [Desyrel] 50 mg PO QHS #30 tab 12/18/20 Unknown Rx Allergies Allergy/AdvReac Type Severity Reaction Status Date / Time aripiprazole [From Abilify] Allergy Unknown Verified 10/13/20 16:19 methylphenidate Allergy Unknown Verified 10/13/20 16:19 [From Concerta] risperidone [From Risperdal] AdvReac Unknown Verified 10/13/20 16:19 ED Review of Systems Constitutional: denies: chills, fever Eyes: denies: eye pain, eye discharge, vision change ENT: denies: ear pain, throat pain Respiratory: denies: cough, shortness of breath, wheezing Cardiovascular: denies: chest pain, palpitations Endocrine: no symptoms reported Gastrointestinal: denies: abdominal pain, nausea, diarrhea Genitourinary: denies: urgency, dysuria Musculoskeletal: denies: back pain, joint swelling, arthralgia Skin: denies: rash, lesions Neurological: denies: headache, weakness, paresthesias Psychiatric: as per HPI, anxiety, depression, suicidal thoughts Hematological/Lymphatic: denies: easy bleeding, easy bruising ED Past Medical Hx - Past Medical History Previous Medical History?: Yes Hx Hypertension: Yes Hx Seizures: Yes Hx Psychiatric Treatment: Yes (schizoaffective and bipolar disorder,PTSD,ADHD) - Surgical History Past Surgical History?: Yes Additional Surgical History: breast reduction - Family History Family history: no significant - Social History Smoking Status: Current Some Day Smoker Substance Use Type: None - Medications Home Medications: Home Medications Medication Instructions Recorded Confirmed Last Taken Type OLANzapine [ZyPREXA] 5 mg PO QHS #30 tablet 11/29/19 10/10/20 Unknown Rx Divalproex [Josie COX] 750 mg PO BID 10/10/20 10/10/20 Unknown History QUEtiapine [SEROquel] 100 mg PO BID 10/10/20 10/10/20 Unknown History Benztropine [Cogentin] 2 mg PO QHS #30 tab 12/18/20 Unknown Rx Divalproex [Josie COX] 500 mg PO BID #60 tablet 12/18/20 Unknown Rx FLUoxetine [PROzac] 10 mg PO QDAY #30 tablet 12/18/20 Unknown Rx OLANZapine [Zyprexa] 5 mg PO DAILY #30 tablet 12/18/20 Unknown Rx traZODone [Desyrel] 50 mg PO QHS #30 tab 12/18/20 Unknown Rx ED Physical Exam - General Limitations: No Limitations General appearance: alert, in no apparent distress - Head Head exam: Present: atraumatic, normocephalic - Eye Eye exam: Present: normal appearance - ENT ENT exam: Present: mucous membranes moist - Neck Neck exam: Present: normal inspection - Respiratory Respiratory exam: Present: normal lung sounds bilaterally. Absent: respiratory distress - Cardiovascular Cardiovascular Exam: Present: regular rate, normal rhythm. Absent: systolic murmur, diastolic murmur, rubs, gallop - GI/Abdominal GI/Abdominal exam: Present: soft, normal bowel sounds - Rectal Rectal exam: Present: deferred - Extremities Exam Extremities exam: Present: normal inspection - Back Exam Back exam: Present: normal inspection - Neurological Exam Neurological exam: Present: alert, oriented X3 - Psychiatric Psychiatric exam: Present: depressed, suicidal ideation - Skin Skin exam: Present: warm, dry, intact, normal color. Absent: rash ED Course - Reevaluation(s) Reevaluation #1: Patient placed on a ER hold. 12/17/20 04:44 Reevaluation #2: Patient is medically cleared. Patient will remain in the ER as a ER hold and on a 1013 until the patient is cleared by our psychiatry mental health team. 12/17/20 06:05 ED Medical Decision Making - Lab Data Result diagrams: 12/17/20 04:31 12/17/20 04:31 - Medical Decision Making Patient is a 20-year-old male presents emergency room with complaints of depression and suicidal ideation. Patient states he had a plan and had an attempt by running in traffic. Patient states that he slept for a long time. Patient states that multiple times in the past. Patient had labs done. Patient's labs were essentially unremarkable. Patient is medically cleared. Patient remained in the ER as an ER hold and on a 1013 until the patient is cleared by our mental health and psychiatry team. Patient's final disposition will come from our psychiatry team. - Differential Diagnosis Suicidal ideation, depression ED Disposition Clinical Impression: Schizoaffective disorder, Homelessness Disposition: 01 HOME / SELF CARE / HOMELESS Is pt being admited?: No Does the pt Need Aspirin: No Condition: Stable Instructions: Managing Schizoaffective Disorder, Stress, Adult Additional Instructions: Transitional Jail Providers: French Lemon Sumit [phone] Address: [address] [place] [id number] Mr. Clark: Roe Pérez [phone] Ms. Hameed: Lisa Clarkd [phone] Ms. Sarahi Irby [facility] [phone] Ms. Nowak: [facility] [phone] Francesco Family Home: [facility] [phone] [facility] HOMELESS RESOURCES: [facility] NEED HELP? If you are in need of help or know someone who does, please contact us at [email or web address] call , or come to our offices at [address] [place] [address], Monday-Monday beginning at 8AM. [facility] Males only Admission at 7am Mon to Mon Address: [address] [place] [address] Client Engagement [phone] Regular program admission occurs Monday through Monday at 7:00 amand operates on a first come, first serve basis.Because we cant anticipate program availability in advance andprogram spots are in high demand, we recommend arriving early. Space fills up fast! Next steps can include: Assignment to a [facility] program bed Connection to and placement in a partner program, or Referral to a partner agency OUTPATIENT MENTAL HEALTH RESOURCES [facility], [facility] Tim Doss MD: [address] [place] [address], [address] [place] [address] [place] [address] [place] [facility]: [employer] [facility] [address] [place] [address] [place] [address] [phone] [facility] Psychiatry: [facility] Healthcare: [address] [facility] [address] [place] [address] [facility] [id number] [facility]: Jaime Reed MD: [address] [facility] [address] [facility] [id number] [facility]: [address] [place] [address] [phone] [place] CRISIS AND ACCESS LINE: [place]: [facility] [address] [place] [address] Monday thru Monday - 8am - 5pm Call to schedule an assessment for mental health and substance abuse programs [place]: [facility] Address: [address] [place] [address] Monday thru Monday- 7am-2pm [facility] Address: [address] [place] [address] Monday thru Monday: 8:30AM-5PM Prescriptions: Benztropine [Cogentin] 2 mg PO QHS #30 tab traZODone [Desyrel] 50 mg PO QHS #[address] [DepaKOTE DR] 500 mg PO BID #60 tablet FLUoxetine [PROzac] 10 mg PO QDAY #30 tablet OLANZapine [Zyprexa] 5 mg PO DAILY #30 tablet Referrals: PRIMARY CARE, [Primary Care Provider] - 2-3 Days Time of Disposition: 06:09 <CISCO PENA - Last Filed: 12/18/20 11:07> ED Review of Systems ROS: Stated complaint: MH EVAL Other details as noted in HPI ED Course Vital Signs 12/17/20 12/17/20 12/17/20 04:10 04:20 08:18 Temperature 98.5 F 98.6 F Pulse Rate 91 H 80 Respiratory 18 18 Rate Blood Pressure 129/89 Blood Pressure 123/76 [Left] O2 Sat by Pulse 97 97 100 Oximetry 12/17/20 12/18/20 12/18/20 20:10 01:45 08:45 Temperature 97.7 F 97.9 F 96.9 F L Pulse Rate 79 72 74 Respiratory 19 16 18 Rate Blood Pressure Blood Pressure 115/59 126/75 135/72 [Left] O2 Sat by Pulse 98 98 97 Oximetry 12/18/20 10:38 Temperature Pulse Rate Respiratory Rate Blood Pressure Blood Pressure [Left] O2 Sat by Pulse 97 Oximetry - Reevaluation(s) Reevaluation #3: 12/18/20 11:07 Psychiatry Progress Note Patient Name: IESHA GONZALEZ Date of : 89 Patient Status: Emergency Emergency Provider: NEHEMIAS CARLOS III Date: 12/18/20 10:54 Initialization Date: 12/18/20 10:54 Subjective - Reason for Consult Consult date: 12/18/20 Reason for consult: SI - Chief Complaint Chief complaint: The patient was seen today, he is calm, cooperative and pleasant. He is known to me from previous visits. He says he is "good." He says he needs help to find a fpc. The patient currently denies SI/HI. When asking is that what brought him to the ER, he says "no, I need a place to stay. That's what brought me here. I'm not suicidal or homicidal." He denies hallucinations of any kind. MENTAL STATUS EXAMINATION General Appearance and Behavior: Age appropriate, good hygiene, good eye contact, calm, cooperative and polite Cooperation: engaging Psychomotor Behavior: Psychomotor normal Mood: "good" Affect and affective range: congruent with stated mood Thought Process: goal directed Speech: Normal tone and pace Thought Content Suicidal Ideation: Denies Homicidal Ideation: Denies Hallucinations: Denies Delusions: None elicited Impulse Control: Unimpaired Insight and Judgment: Limited insight and judgment Memory: Normal Attention: Undvided attention impaired Orientation: A/o x 3 Assessment and Plan (1)Bipolar Disorder Treatment Plan D/c 1013 prozac 10mg po daily depakote dr 500mg po bid trazodone 5omg po qhs cogentin 2mg po qhs olanzaine 5mg po daily The patient is to receive resources from property condition assessor or case management for fpc prior to discharge Continue previously prescribed meds Sitter: Defer to primary Medical: Per primary Disposition: Do not recommend acute psychiatric treatment. The patient understands that if SI/HI or any fear of endangerment are to return he is to seek immediate assistance. The property condition assessor to further discuss safety plan Floor Nurse to provide resources for outpatient psych, group homes, long term, CBT, med assistance program, and transportation pass. The patient to follow up with outpatient psych in 7 to 14 days upon discharge Will sign off. Thank you for this consult Case staffed with Dr. Yeager. ED Medical Decision Making - Lab Data Result diagrams: 12/17/20 04:31 12/17/20 04:31 Critical care attestation.: If time is entered above; I have spent that time in minutes in the direct care of this critically ill patient, excluding procedure time. ED Disposition Is pt being admited?: No Does the pt Need Aspirin: No
[2020-12-17 05:01] LABS: Basophils % (Auto) 0.6 % (0.0-1.8); Eosinophils # (Auto) 0.1 K/mm3 (0.0-0.4); Eosinophils % (Auto) 1.5 % (0.0-4.3); Hematocrit 38.8 % (35.5-45.6); Hemoglobin 12.7 gm/dl (11.8-15.2); Lymphocytes # (Auto) 3.6 K/mm3 (1.2-5.4); Lymphocytes % (Auto) 46.5 % (13.4-35.0); Mean Corpuscular HGB Conc 33 % (32-34); Mean Corpuscular Volume 82 fl (84-94); Monocytes # (Auto) 0.6 K/mm3 (0.0-0.8); Monocytes % (Auto) 8.2 % (0.0-7.3); Platelet Count 249 K/mm3 (140-440); Red Blood Count 4.74 M/mm3 (3.65-5.03); Red Cell Distribution Width 14.9 % (13.2-15.2)
[2020-12-17 05:18] LABS: BUN/Creatinine Ratio 10; Blood Urea Nitrogen 10 mg/dL (9-20); Calcium 8.9 mg/dL (8.4-10.2); Hemolysis Index 3
--- NOTE | 2020-12-17 10:34 | Consultation ---
History of Present Illness - Reason for Consult Consult date: 12/17/20 Reason for consult: Mental health evaluation - History of Present Psychiatric Illness Per ED Note: Patient is a 20-year-old male that presents emergency room with complaints of depression and suicidal ideation. Patient states he had an attempt today. Patient states he was in traffic trying to get hit by car. Patient states he tried this 1 month ago. Patient states he just wants to . Patient states he needs help. Patient states he also needs a place to stay. Patient states he always has a plan to run into traffic. Patient denies homicidal ideation. Patient complains of anxiety and depression. Patient denies hallucinations. Toy Thao is a 30 year old male with a history of Depression, Bipolar, and Schizophrenia who presents to the ED with depression and suicidal ideation. In my interview with the patient he reports that " I tried to sleep in the middle of the road; I am suicidal because I don't have a place to stay." The patient reports that he is noncompliant with psychotropic medications " when I get discharge I throw away the medicines and be back on the streets." When asked about family support he states that" I have my family in [place] but there is a protective order and I cannot stay with family." The patient endorses suicidal /homicidal ideation and auditory/visual hallucinations. PAST PSYCHIATRIC HISTORY: Diagnoses: Depression, bipolar, Schizophrenia Suicide attempts or Self-harm behavior: yes Prior psychiatric hospitalizations: yes Substance Abuse history: Nicotine Previous psychiatric medications tried: Yes Outpatient treatment: Denies PAST MEDICAL HISTORY: None reported Family Psychiatric History: None reported or documented SOCIAL HISTORY Marital Status: Single Living Arrangements: Homeless Employment Status: Disabled Access to guns/weapons: Denies Education: 10th grade History of Abuse: Denies Legal History: Denies MENTAL STATUS EXAMINATION General Appearance and Behavior: Age appropriate, good hygiene, good eye contact, calm, cooperative and polite Cooperation: engaging Psychomotor Behavior: Psychomotor normal Mood: "good" Affect and affective range: congruent with stated mood Thought Process: goal directed Speech: Normal tone and pace Thought Content Suicidal Ideation: Denies Homicidal Ideation: Denies Hallucinations: Denies Delusions: None elicited Impulse Control: Unimpaired Insight and Judgment: Limited insight and judgment Memory: Normal Attention: Undvided attention impaired Orientation: A/o x 3 Assessment and Plan (1)Bipolar Disorder Treatment Plan Continue 1013 Continue previously prescribed meds Sitter: Defer to primary Medical: Per primary Disposition: Recommend acute psychiatric treatment.e Will follow. Thank you for this consult Case staffed with Dr. Yeager. Medications and Allergies Medications and Allergies Allergies Allergy/AdvReac Type Severity Reaction Status Date / Time aripiprazole [From Abilify] Allergy Unknown Verified 10/13/20 16:19 methylphenidate Allergy Unknown Verified 10/13/20 16:19 [From Concerta] risperidone [From Risperdal] AdvReac Unknown Verified 10/13/20 16:19 Home Medications Medication Instructions Recorded Confirmed Last Taken Type Benztropine [Cogentin] 2 mg PO QHS #30 tab 11/29/19 10/10/20 Unknown Rx OLANzapine [ZyPREXA] 5 mg PO QHS #30 tablet 11/29/19 10/10/20 Unknown Rx Divalproex [Josie COX] 750 mg PO BID 10/10/20 10/10/20 Unknown History QUEtiapine [SEROquel] 100 mg PO BID 10/10/20 10/10/20 Unknown History FLUoxetine [PROzac] 10 mg PO QDAY #30 tablet 10/11/20 Unknown Rx OLANZapine [Zyprexa] 5 mg PO DAILY #30 tablet 10/11/20 Unknown Rx traZODone [Desyrel] 50 mg PO QHS #30 tab 10/11/20 Unknown Rx Mental Status Exam - Vital signs Last Vital Signs Temp 98.6 F 12/17/20 08:18 Pulse 80 12/17/20 08:18 Resp 18 12/17/20 08:18 BP 123/76 12/17/20 08:18 Pulse Ox 100 12/17/20 08:18 Results Result Diagrams: 12/17/20 04:31 12/17/20 04:31 Abnormal lab results 12/17/20 12/17/20 12/17/20 Range/Units 04:31 04:31 04:31 MCV (84-94) fl MCH (28-32) pg Lymph % (Auto) (13.4-35.0) % [place] % (Auto) (0.0-7.3) % Chloride 107.2 H (98-107) mmol/L Glucose 112 H (75-100) mg/dL Salicylates < 0.3 L (2.8-20.0) mg/dL Acetaminophen 5.0 L (10.0-30.0) ug/mL 12/17/20 Range/Units 04:31 MCV 82 L (84-94) fl MCH 27 L (28-32) pg Lymph % (Auto) 46.5 H (13.4-35.0) % [place] % (Auto) 8.2 H (0.0-7.3) % Chloride (98-107) mmol/L Glucose (75-100) mg/dL Salicylates (2.8-20.0) mg/dL Acetaminophen (10.0-30.0) ug/mL All other labs normal.
--- NOTE | 2020-12-17 10:53 | Event Note ---
Date: 12/17/20 This patient came into the emergency department earlier this morning with a complaint of suicidal ideations with a possible attempt by running into traffic. He has a history of bipolar disorder and schizophrenia. He was medically cleared by my colleague. I did review the labs and they are unremarkable except for a UDS positive for marijuana. Vital signs reassuring thus far. Seen by the psychiatric team who recommended inpatient stabilization. We will continue to monitor the patient during his ED course. Vital Signs - 24 hr 12/17/20 12/17/20 12/17/20 04:10 04:20 08:18 Temperature 98.5 F 98.6 F Pulse Rate 91 H 80 Respiratory 18 18 Rate Blood Pressure 129/89 Blood Pressure 123/76 [Left] O2 Sat by Pulse 97 97 100 Oximetry
[2020-12-17] MEDS: DIVALPROEX DR 500 MG TAB PO SCH ×2 (11:45→22:11)
[2020-12-17] MEDS: FLUoxetine 10 MG TAB PO SCH ×2 (11:45→11:59)
[2020-12-17] MEDS ORDERED: traZODone 50 MG TAB PO SCH (22:00)
[2020-12-17] MEDS ORDERED: BENZTROPINE 1 MG TAB PO SCH (22:00)
[2020-12-18] MEDS ORDERED: ZIPRASIDONE MESYLATE 20 MG VIAL IM ONE ×3 (06:51→06:53)
[2020-12-18] MEDS ORDERED: WATER FOR INJ Sterile (PF) 10 ML IM ONE (06:52)
[2020-12-18] MEDS ORDERED: WATER FOR INJ Sterile (PF) 10 ML ONE (06:53)
--- NOTE | 2020-12-18 06:53 | Event Note ---
I was asked by nurse to evaluate patient. Patient has become increasingly agitated. I spoke with this gentleman 30 minutes prior. He had requested immediate discharge. I attempted to redirect him. I informed him that mental health team reassessment will occur within a few hours. He threatened to kill staff. I have ordered chemical restraint. Also ordered seclusion.
[2020-12-18 08:45] VITALS: BP 135/72
[2020-12-18] MEDS: DIVALPROEX DR 500 MG TAB PO SCH (09:38)
[2020-12-18] MEDS: FLUoxetine 10 MG TAB PO SCH (09:38)
--- NOTE | 2020-12-18 10:55 | Progress Note ---
Subjective - Reason for Consult Consult date: 12/18/20 Reason for consult: SI - Chief Complaint Chief complaint: The patient was seen today, he is calm, cooperative and pleasant. He is known to me from previous visits. He says he is "good." He says he needs help to find a detention. The patient currently denies SI/HI. When asking is that what brought him to the ER, he says "no, I need a place to stay. That's what brought me here. I'm not suicidal or homicidal." He denies hallucinations of any kind. MENTAL STATUS EXAMINATION General Appearance and Behavior: Age appropriate, good hygiene, good eye contact, calm, cooperative and polite Cooperation: engaging Psychomotor Behavior: Psychomotor normal Mood: "good" Affect and affective range: congruent with stated mood Thought Process: goal directed Speech: Normal tone and pace Thought Content Suicidal Ideation: Denies Homicidal Ideation: Denies Hallucinations: Denies Delusions: None elicited Impulse Control: Unimpaired Insight and Judgment: Limited insight and judgment Memory: Normal Attention: Undvided attention impaired Orientation: A/o x 3 Assessment and Plan (1)Bipolar Disorder Treatment Plan D/c 1013 prozac 10mg po daily depakote dr 500mg po bid trazodone 5omg po qhs cogentin 2mg po qhs olanzaine 5mg po daily The patient is to receive resources from green plumber or case management for detention prior to discharge Continue previously prescribed meds Sitter: Defer to primary Medical: Per primary Disposition: Do not recommend acute psychiatric treatment. The patient understands that if SI/HI or any fear of endangerment are to return he is to seek immediate assistance. The green plumber to further discuss safety plan College Service Officer to provide resources for outpatient psych, group homes, skilled nursing, CBT, med assistance program, and transportation pass. The patient to follow up with outpatient psych in 7 to 14 days upon discharge Will sign off. Thank you for this consult Case staffed with Dr. Yeager. Mental Status Exam - Vital signs Last Vital Signs Temp 96.9 F L 12/18/20 08:45 Pulse 74 12/18/20 08:45 Resp 18 12/18/20 08:45 BP 135/72 12/18/20 08:45 Pulse Ox 97 12/18/20 10:38
== END 2020-12-18 11:39 | disposition home or self-care (01) ==
LOC: ED 02:23
DX: F25.9 Schizoaffective disorder, unspecified (principal); Z59.0 Homelessness; Z20.822 Contact with and (suspected) exposure to COVID-19; I10 Essential (primary) hypertension; R56.9 Unspecified convulsions; F31.9 Bipolar disorder, unspecified; F43.10 Post-traumatic stress disorder, unspecified; F90.9 Attention-deficit hyperactivity disorder, unspecified type; Z98.890 Other specified postprocedural states; F17.200 Nicotine dependence, unspecified, uncomplicated; Z88.8 Allergy status to other drugs, medicaments and biological substances; Z88.9 Allergy status to unspecified drugs, medicaments and biological substances
CPT/HCPCS: 36415; 80048; 80307; 81001; 85025; 96372; 99284; J3486; U0003; 80320; G0480

== ENCOUNTER 2020-12-19 04:39 | Emergency (ER) | payer MEDICAID | END 2020-12-19 05:00 | LOC: ED 04:39 | DX: Z00.00 Encounter for general adult medical examination without abnormal findings (principal); Z53.21 Procedure and treatment not carried out due to patient leaving prior to being seen by health care provider ==